=== PATIENT | male | born 1940 | race Caucasian/White ===

== ENCOUNTER 2016-09-08 08:19 | Outpatient (CLI) | payer MEDICARE, OTHER ==
[~2016-09-08] VITALS: Ht 177.8 cm; Wt 97.7 kg
--- NOTE | ~2016-09-08 | OP ---
PATIENT NAME: ALLYN MCKAY MEDICAL RECORD: [id number] :38 LOCATION:D.CAT ADMISSION DATE: SURGEON: IVAN MARTINEZ MD DATE OF OPERATION: 09/08/2016 PROCEDURES: 1. PTCA stent, left circumflex. 2. Left heart catheterization. 3. Selective coronary angiography. 4. Left ventriculogram. 5. Vein graft angiography. 6. ANN angiography. INDICATION: Angina and coronary artery disease. PROCEDURE IN DETAIL: After informed consent was obtained and after detailed explanation of risks, benefits as well as alternative therapies, the patient elected to proceed with angiogram and angioplasty. The right femoral area was prepped and draped in normal sterile fashion. The right femoral artery was cannulated via modified Seldinger technique with placement of 6-German sheath. All catheters exchanged through this sheath. FINDINGS: Left ventriculogram was performed in standard 30-degree CABAN view, reveals global hypokinesis throughout all segments. Overall ejection fraction 40%. SELECTIVE CORONARY ANGIOGRAPHY: 1. Left main showed no significant angiographic disease. 2. Left anterior descending has total occlusion in the proximal vessel. 3. ANN to the LAD is widely patent. 4. The left circumflex has a 99% stenosis in the mid vessel. This is a 12-mm lesion and a 2.75-mm vessel with GHADA-2 flow. 5. The vein graft to the circumflex is closed. 6. Right coronary artery is totally occluded. 7. Vein graft to the right coronary artery is widely patent. PTCA STENT OF THE LEFT CIRCUMFLEX: The stent used is a 2.75 x 14 mm BioFreedom. Result was 0% residual stenosis, GHADA-3 flow. IMPRESSION: Successful percutaneous transluminal coronary angioplasty stent of the left circumflex going from 99% initial stenosis to 0% residual. TRANSINT:[id number] Voice Confirmation ID: [id number] DOCUMENT ID: [id number] IVAN MARTINEZ MD CC: [id number] DICTATION DATE: 09/08/16 1344 FEDERAL APPELLATE LAW CLERK: 09/08/162131 DEP CLI 09/08/16 [facility] [address] [id number]
--- NOTE | ~2016-09-08 | HEMODYNAMI ---
PATIENT:ALLYN MCKAY MEDICAL RECORD: [id number] : 36 LOCATION:ANIKA ADMISSION DATE: 09/08/16 Generatedon:09/08/201613:44 Patient name: ALLYN MCKAY Patient #: [id number] SSN: : Date of study: 09/08/2016 Page: Of Hemodynamic Procedure Report Patient Data Patient Demographics Procedure consent was obtained First Name: ALLYN Gender: Male Last Name: NELY : 1940 Patient #: [id number] Age: 76 year(s) Race: Unknown Additional ID: [id number] Contact details Address: [address] State: [place] City: [facility] Zip code: [address] Past Medical History Allergies: No known allergies Admission Admission Data Admission Date: 09/08/2016 Admission Time: 8:19 Admit Source: Other Height (in.): 70 BSA: 2.15 (m2) Height (cm.): 177.8 BMI: 30.85 (kg/m2) Weight (lbs.): 215 Weight (kg.): 97.52 Procedure Procedure Types Cath Procedure Diagnostic Procedure LHC LHC w/Coronaries w/Grafts PCI Procedure Coronary Stent Initial Miscellaneous Procedures Moderate Sedation up to 30 minutes Procedure Description Procedure Date Procedure Date: 09/08/2016 Procedure Start Time: 13:24 Procedure End Time: 13:44 Procedure Staff Name Function Paul Meyer MD Performing Physician Darren Gabriel RT Scrub Ranjana Caruso RT Monitor Lilian Shell RN Nurse Procedure Data Cath Procedure Fluoroscopy Diagnostic fluoroscopy Total fluoroscopy Time: 5.6 time: 5.6 min min Diagnostic fluoroscopy Total fluoroscopy dose: 760 dose: 760 mGy mGy Contrast Material Contrast Material Type Amount (ml) Isovue 300 112 Entry Location Entry Primary Successful Side Size Upsize Upsize Entry Closure Succes sful Closure Location (Fr) 1 (Fr) 2 (Fr) Remarks Device Remarks Femoral Right 5 Fr 6 Fr Exoseal artery Short Estimated blood loss: 10 ml Diagnostic catheters Device Type Used For End Catheter Placement Cordis 5Fr Pigtail LV Angiography Catheter (MP) Cordis 5Fr JL 4.0 Left Coronary Catheter (MP) Angiography Cordis 5Fr 3DRC Catheter Internal mammary (MP) arteriography Cordis 5Fr 3DRC Catheter Right Coronary (MP) Angiography Diagnostic Infinity 5Fr SVG Angiography AR 2 MOD catheter Diagnostic Infinity 5Fr SVG Angiography AR 2 MOD catheter Cordis 5Fr 3DRC Catheter Internal mammary (MP) arteriography Procedure Complications No complications Procedure Medications Medication Administration Route Dosage Oxygen NC 2 l/min Heparin Flush Bag added to field 2 bags (1000units/500ml NS) Lidocaine 2% added to field 20 Fentanyl I.V. 50 mcg Versed I.V. 1 mg Fentanyl I.V. 25 mcg Versed I.V. 0.5 mg Heparin Bolus I.V. 4000 units Fentanyl I.V. 25 mcg Versed I.V. 0.5 mg Hemodynamics Rest BSA: 2.15 (m2) O2 Consumption: Estimated: 233.73 (ml/min) O2 Consumption indexed : Estimated:108.71 (ml/min/m) Heart Rate: 55 (bpm) Snapshots Pre Cath Intra NCS Post Cath Vital Signs Time Heart Resp SPO2 etCO2 [id number] NIBP (mmHg) Rhythm Pain Sedation Rate (ipm) (%) (mmHg) (mmHg) Status Level (bpm) 13:04:51 52 21 100 0 0 139/70(114) NSR 0 (11) 10(A) , No pain 13:09:11 56 17 100 0 0 130/68(105) NSR 0 (11) 10(A) , No pain 13:13:29 54 20 100 0 0 121/66(105) NSR 0 (11) 10(A) , No pain 13:17:43 53 17 99 0 0 124/68(93) NSR 0 (11) 9(A) , No pain 13:22:40 57 19 96 0 0 117/72(96) NSR 0 (11) 9(A) , No pain 13:26:52 58 16 96 0 0 121/69(83) NSR 0 (11) 9(A) , No pain 13:31:06 57 18 98 0 0 125/68(80) NSR 0 (11) 9(A) , No pain 13:35:22 56 17 99 0 0 119/66(98) NSR 0 (11) 9(A) , No pain 13:39:36 58 17 98 0 0 118/62(85) NSR 0 (11) 9(A) , No pain 13:43:46 63 13 96 0 0 133/72(89) NSR 0 (11) 9(A) , No pain Medications Time Medication Route Dose Verified Delivered Reason Notes Effectiveness by by 13:06:36 Oxygen NC 2 Lilian Lilian used for l/min Shell Shell boiler operators supervisor RN 13:06:44 Heparin Flush added 2 Lilian Lilian used for Bag to bags Shell Shell procedure (1000units/500ml field RN RN NS) 13:06:51 Lidocaine 2% added 20ml Lilian Lilian used for to vial Shell Shell procedure field RN RN 13:16:06 Fentanyl I.V. 50 Lilian Lilian for sedation mcg Sumaya Shell RN RN 13:16:11 Versed I.V. 1 mg Lilian Lilian for sedation Shell Shell RN RN 13:24:24 Fentanyl I.V. 25 Lilian Lilian for sedation mcg Shell Shell RN RN 13:24:28 Versed I.V. 0.5 Lilian Lilian for sedation mg Shellranjith Shell RN RN 13:34:29 Heparin Bolus I.V. 4000 Lilian Lilian for units Shell Shell anticoagulation RN RN 13:38:53 Fentanyl I.V. 25 Lilian Lilian for sedation mcg Shellranjith Shell RN RN 13:38:56 Versed I.V. 0.5 Lilian Lilian for sedation mg Shell Shell RN laundry pricing clerk Log Time Note 12:38:00 Patient Height : 70 cm 12:38:03 Patient Weight : 215 kg 12:42:25 Admit Source: Other 12:42:28 Diagnostic Cath status Elective 12:42:30 Time tracking: Regular hours 12:42:35 Plan of Care:Hemodynamics will remain stable., Cardiac rhythm will remain stable., Comfort level will be maintained., Respiratory function will remain adequate., Patient/ family verbilizes understanding of procedure., Procedure tolerated without complication., Recovers from procedure without complications.. 12:42:39 Signed procedure consent form obtained from patient. 12:42:49 H&P Date Dictated: 09/06/2016 Within 30 days and on chart., H&P Addendum completed by physician on day of procedure. (MUST COMPLETE FOR ALL OUTPATIENTS). 12:42:59 ACC The patient was administered the following blood thiners within the last 24 hours: ACCPlavix 12:43:04 Patient diabetic? Yes. 12:43:05 If diabetic: On Metformin? Yes 12:43:08 If on Metformin: Last Dose? 09/06/2016 12:51:21 Ranjana Counts RT(R) sent for patient. Start room use. 12:57:44 Patient received from Pre/Post Procedure Room to CCL 1 Alert and oriented. Tansferred to table in Supine position. 12:57:45 Warm blankets applied, and shaji hugger turned on for patient comfort. 12:57:45 Correct patient and procedure confirmed by team. 12:57:46 ECG and BP/O2 sat monitors applied to patient. 13:03:38 Vital chart was started 13:06:36 Oxygen 2 l/min NC was administered by Lilian Shell RN; used for procedure; 13:06:44 Heparin Flush Bag (1000units/500ml NS) 2 bags added to field was administered by Lilian Shell RN; used for procedure; 13:06:51 Lidocaine 2% 20ml vial added to field was administered by Lilian Shell RN; used for procedure; 13:07:48 Rhythm: sinus bradycardia 13:07:50 Full Disclosure recording started 13:07:51 Pre-procedure instructions explained to patient. 13:07:51 Pre-op teaching completed and patient verbalized understanding. 13:07:53 Family in patients room. 13:07:55 Patient NPO since Midnight. 13:08:01 Patient allergic to No known allergies 13:08:08 Is the patient allergic to Iodine/contrast media? No. 13:08:09 Is patient on blood thinner?Yes 13:08:11 ACC The patient was administered the following blood thiners within the last 24 hours: ACCPlavix 13:08:17 Previous problem with sedation/anesthesia? No ? 13:08:18 Snore? Yes 13:08:19 Sleep apnea? No 13:08:20 Deviated septum? No 13:08:20 Opens mouth fully? Yes 13:08:21 Sticks out tongue? Yes 13:08:23 Airway obstruction? No ? 13:08:24 Dentures? No ? 13:08:27 Pre procedure: right dorsailis pedis pulse 2+ Normal; easily identifiable; not easily obliterated 13:08:29 Patient pain scale 0/10 ?. 13:08:37 IV patent on arrival in right forearm with 0.9% NaCl at [facility]. 13:08:41 Lab results completed and on chart. 13:08:44 Right groin area was prepped with chlora-prep and draped in sterile fashion 13:08:47 Use device set Femoral Dx 13:08:48 Acist Syringe opened to sterile field. 13:08:49 Bag Decanter opened to sterile field. 13:08:49 Medline Cath Pack opened to sterile field. 13:08:49 Terumo 5Fr Wall Sheath opened to sterile field. 13:08:50 St Jimenez 260cm J .035 wire opened to sterile field. 13:08:51 Acist Hand Control opened to sterile field. 13:08:52 Acist Manifold opened to sterile field. 13:08:52 Diagnostic Infinity 5Fr Multipack catheter opened to sterile field. 13:08:53 Tegaderm 4 x 4 opened to sterile field. 13:10:06 Baseline sample Acquired. 13:14:44 Final Timeout: patient, procedure, and site verified with staff and physician. All members of the team are in agreement. 13:14:47 Right groin site verified by team. 13:14:50 Physical assessment completed. ASA score P 2 - A patient with mild systemic disease as per Paul Meyer MD. 13:14:52 Sedation plan: IV Moderate Sedation Versed, Fentanyl 13:16:06 Fentanyl 50 mcg I.V. was administered by Lilian Shell RN; for sedation; 13:16:11 Versed 1 mg I.V. was administered by Lilian Shell RN; for sedation; 13:17:57 Zero performed for pressure channel P1 13:24:07 Procedure started. 13:24:11 Local anesthetic to right femoral artery with Lidocaine 2% by Paul Meyer MD.INITIAL ACCESS ONLY 13:24:24 Fentanyl 25 mcg I.V. was administered by Lilian Shell RN; for sedation; 13:24:28 Versed 0.5 mg I.V. was administered by Lilian Shell RN; for sedation; 13:25:27 A 5 Fr sheath was inserted into the Right Femoral artery 13:25:33 A Cordis 5Fr Pigtail Catheter (MP) was advanced over the wire and used for LV Angiography. 13:25:42 LV gram done using CABAN 13:25:45 Injector settings: Ml/sec: 10, Volume: 20, 13:25:47 LV hemodynamics recorded. 13:25:50 EF : 40 % 13:25:52 Catheter removed. 13:26:16 A Cordis 5Fr JL 4.0 Catheter (MP) was advanced over the wire and used for Left Coronary Angiography. 13:26:50 Catheter removed. 13:27:07 DailyObjects.comixCompak Inflation Kit opened to sterile field. 13:27:07 Pineda Musicaneisper J 300cm 0.014 guide wire opened to sterile field. 13:27:08 Terumo 6Fr Wall Sheath opened to sterile field. 13:27:24 A Cordis 5Fr 3DRC Catheter (MP) was advanced over the wire and used for Internal mammary arteriography.to LAD 13:28:39 A Cordis 5Fr 3DRC Catheter (MP) was advanced over the wire and used for Right Coronary Angiography. 13:28:41 Catheter removed. 13:28:57 A Diagnostic Infinity 5Fr AR 2 MOD catheter was advanced over the wire and used for SVG Angiography.To Circ--Occluded 13:29:49 A Diagnostic Infinity 5Fr AR 2 MOD catheter was advanced over the wire and used for SVG Angiography.to RCA 13:29:53 Catheter removed. 13:31:16 A Cordis 5Fr 3DRC Catheter (MP) was advanced over the wire and used for Internal mammary arteriography.TASIA--Not Grafted 13:31:45 Cordis 6FR XBLAD 4.0 SH guide catheter opened to sterile field. 13:31:55 Sheath upsized to a 6 Fr Short. 13:34:12 6 Fr XBLAD 4.0 SH guide catheter was inserted over the wire 13:34:29 Heparin Bolus 4000 units I.V. was administered by Lilian Shell RN; for anticoagulation; 13:34:58 Whisper wire advanced. 13:36:18 Inflation number: 1 A [employer] [place] 2.0 X 15 balloon was prepped and advanced across the Prox CX, then inflated to 17 EMMETT for 0:11 (min:sec). 13:37:44 Balloon removed over the wire. 13:38:47 Inflation Number: 2 A Biofreedom 2.75 x 14 stent (No Cost Implant) was prepped and advanced across the Prox CX. The stent was deployed at 15 EMMETT for 0:06 (min:sec). 13:38:53 Fentanyl 25 mcg I.V. was administered by Lilian Shell RN; for sedation; 13:38:56 Versed 0.5 mg I.V. was administered by Lilian Shell RN; for sedation; 13:39:01 Stent catheter was removed intact over wire. 13:39:02 Wire removed. 13:39:03 Guide catheter removed. 13:39:20 Sheath removed intact; hemostasis achieved with Exoseal to the Right Femoral artery. 13:39:21 Procedure ended.(Physican Out) 13:39:43 Fluoroscopy time 05.60 minutes. 13:39:48 Fluoroscopy dose: 760 mGy 13:39:48 Flurop Dose total: 760 13:39:51 Contrast amount:Isovue 300 112ml. 13:39:52 Sharps counted by scrub and verified by R.N. 13:39:53 Insertion/operative site no bleeding no hematoma. 13:39:56 Post-op/insertion site Right Femoral artery dressed using a 4 x 4 and Tegaderm. 13:39:59 Post right femoral artery:stable, clean and dry 13:40:01 Post Procedure Pulses reassessed and unchanged 13:40:03 Post-procedure physical assessment completed. ASA score P 2 - A patient with mild systemic disease as per Paul Meyer MD. 13:40:05 Post procedure rhythm: unchanged. 13:40:08 Estimated blood loss: 10 ml 13:40:10 Post procedure instruction explained to patient.Patient verbalizes understanding. 13:40:10 Patient needs reinforcement of post procedure teaching. 13:40:33 Procedure type changed to Cath procedure, Diagnostic procedure, LHC, LHC w/Coronaries w/Grafts, PCI procedure, Coronary Stent Initial, Miscellaneous Procedures, Moderate Sedation up to 30 minutes 13:40:38 Procedure Complication : No complications 13:40:41 See physician's report for complete and final results. 13:40:58 Cordis 6Fr Exoseal opened to sterile field. 13:42:09 Procedure and supply charges have been captured, reviewed, submitted and are correct. 13:43:46 Report given to Pre/Post Procedure Room. 13:43:49 Patient transfered to Pre/Post Procedure Room with Stretcher. 13:44:08 Vital chart was stopped 13:44:10 Procedure ended. 13:44:10 Full Disclosure recording stopped 13:44:15 End room use (Document Last) Intervention Summary Intervention Notes Time ActionType Lesion and Equipment Action# Pressure Duration Attributes Used 13:36:18 Inflate Prox CX [place] Sci 1 17 00:11 balloon Chouteau 2.0 X 15 balloon 13:38:47 Place stent Prox CX Biofreedom 2 15 00:06 2.75 x 14 stent (No Cost Implant) Device Usage Item Name Manufacture Quantity Catalog Number Hospital Part Current Mini mal Lot# / Charge Number Stock Stock Serial# Code Acist Acist 1 [id number] [id number] 627080 877019 20 Syringe Medical Systems Inc Bag Microtek 1 2002S 813172 10641 695392 5 DecMeFeedia Medical Inc. Medline Cardinal 1 [id number] 575403 95608 063699 5 Cath Pack Health Terumo 5Fr Terumo 1 [id number] 311906 398305 080159 [address] St Jimenez 1 281094 235373 611625 003420 30 260cm J .035 wire Acist Hand Acist 1 76163 122493 939297 064225 5 Control Medical Systems Inc Acist Acist 1 49016 318528 375081 982936 5 Manifold Medical Systems Inc Diagnostic Cardinal 1 WQ8555 937915 05196 752562 30 Infinity Health 5Fr Multipack catheter Tegaderm 4 3M 1 1626W 572353 695889 072392 5 x 4 Cordis 5Fr Cardinal 1 011940 5 Pigtail Health Catheter (MP) Cordis 5Fr Cardinal 1 161407 5 JL 4.0 Health Catheter (MP) Merit Merit 1 [id number] 005460 737035 457776 15 BasixCompak Medical Inflation Kit Pineda Pineda 1 [id number] 227879 610130 390283 5 Whisper J Vascular 300cm 0.014 guide wire Terumo 6Fr Terumo 1 FAQ700 777634 586689 284436 40 Wall Sheath Cordis 5Fr Cardinal 1 4[address] [place] [address] Catheter (MP) Diagnostic Cardinal 1 [id number] 787906 084617 034771 20 [employer] Health 5Fr AR 2 MOD catheter Cordis 6FR Cardinal 1 [id number] 462187 8589 330653 3 XBLAD 4.0 Health SH guide catheter [employer] Sci Manchester 1 [id number] 241985 909905 963602 1 [id number] CGA Endowment 2.0 X 15 balloon Biofreedom Biosensors [address] [facility]2-6934 234167 506224 5 [id number] 2.75 x 14 Europe SA stent (No Cost Implant) Cordis 6Fr Cardinal 1 EX600 770584 757286 739801 10 [facility] Zappedy Signature Audit [place] Stage Time Signature Unsigned Intra-Procedure 09/08/2016 Ranjana 1:44:31 PM Counts RT(R) Signatures Monitor : Ranjana Signature : Counts RT Date : Time : [id number] [place] [address]
[~2016-09-08 08:19] MED LIST: BAYER CHEWABLE81 MG PO; COREG 3.1253.125 MG PO; FISH OIL 1,0001 CA1 PO; FLOMAX0.4 MG PO; GLIPIZIDE10 MG PO; GLUCOPHAGE500 MG PO; HYDROCODONE-APA1 TAB PO; INVOKANA300 MG PO; ISOSORBIDE DINI30 MG PO; LANTUS INSULIN10 ML SC; LIPITOR40 MG PO; LISINOPRIL2.5 MG PO; MULTIPLE VITAMI1 TA1 PO; NEURONTIN 300300 MG PO; NOVOLOG100 U/M1; PHENERGAN25 M1 PO; PROSCAR5 MG PO; TENORMIN25 MG PO; VITAMIN B-122500 MCG PO
[2016-09-08] MEDS ORDERED: JARDIANCE25 MG PO (08:48)
[2016-09-08] MEDS ORDERED: BETAPACE 120 M120 MG PO (08:49)
[2016-09-08] MEDS ORDERED: PLAVIX75 MG PO (08:49)
[2016-09-08 08:53] VITALS: BP 123/62; Ht 177.8 cm; Wt 97.7 kg
[2016-09-08 09:30] LABS: BASOPHILS 0.4 % (0-2); EOSINOPHILS 2.5 % (0-7); HEMATOCRIT 40.4 % (42.0-54.0); HEMOGLOBIN 13.6 g/dL (13.5-17.5); IMMATURE GRANULOCYTES 0.6 % (0-5); LYMPHOCYTES 16.2 % (15-50); MCH 31.1 pg (26.0-34.0); MCHC 33.7 g/dL (31.0-37.0); MCV 92.4 fL (80.0-100.0); MEAN PLATELET VOLUME 10.8 fL (7.4-10.4); MONOCYTES 11.6 % (2-11); NEUTROPHILS 68.7 % (40-80); RBC 4.37 10x6/uL (4.20-6.10); RDW 14.5 % (11.5-14.5); WBC 6.7 10x3/uL (4.8-10.8)
[2016-09-08 09:38] LABS: PLATELET COUNT 155 10x3/uL (130-400)
[2016-09-08 09:40] LABS: CALC OSMOLALITY 285 mosm/kg (275-300); CALCIUM 9.6 mg/dL (8.5-10.1); CHLORIDE - SERUM 102 mmol/L (98-107); CREATININE - SERUM 1.7 mg/dL (0.6-1.3); GLUCOSE 139 mg/dL (74-106); POTASSIUM - SERUM 4.2 mmol/L (3.5-5.1); SODIUM 139 mmol/L (136-145); UREA NITROGEN 29 mg/dL (7-18); eGFR NON AFRICAN AMERICAN 42 mL/min (90-120)
[2016-09-08 09:57] LABS: INR 1.02 (0.85-1.17); PROTIME 13.3 SECONDS (11.6-15.0)
[2016-09-08 12:01] LABS: CKMB 1.9 U/L (0.0-3.6); CREATINE KINASE 140 UL (21-232)
[2016-09-08 12:03] LABS: TROPONIN-I < 0.017 ng/mL (0.000-0.060)
--- NOTE | 2016-09-08 14:15 | NUR ---
RIGHT GROIN-CDI, NO HEMATOMA OR BLEEDING AT SITE
--- NOTE | 2016-09-08 14:45 | NUR ---
RIGHT GROIN CDI, NO HEMATOMA OR BLEEDING NOTED AT SITE, SOFT TO TOUCH
== END 2016-09-08 18:00 | disposition home or self-care (01) ==
LOC: D.CATH 08:19
PROVIDERS: Internal Medicine Interventional Cardiology
DX: I25.119 Atherosclerotic heart disease of native coronary artery with unspecified angina pectoris (principal); I25.719 Atherosclerosis of autologous vein coronary artery bypass graft(s) with unspecified angina pectoris; Z00.6 Encounter for examination for normal comparison and control in clinical research program; Z01.812 Encounter for preprocedural laboratory examination
CPT/HCPCS: 93459; C9600

== ENCOUNTER 2017-09-18 08:52 | Outpatient (CLI) | payer MEDICARE, OTHER ==
[~2017-09-18] VITALS: Ht 177.8 cm; Wt 100.0 kg
--- NOTE | ~2017-09-18 | OP ---
PATIENT NAME: ALLYN MCKAY MEDICAL RECORD: [id number] :38 LOCATION:D.CAT ADMISSION DATE: SURGEON: IVAN MARTINEZ MD DATE OF OPERATION: 09/18/2017 PROCEDURES: 1. PTCA and stent of RCA through patent vein graft. 2. Left heart catheterization. 3. Selective coronary angiography. 4. Vein graft angiography. 5. ANN angiography. 6. Left ventriculogram. INDICATION: Unstable angina, coronary disease. PROCEDURE IN DETAIL: After informed consent was obtained and after detailed description of risks and benefits as well as alternative therapies, the patient elected to proceed with angiogram and angioplasty. The right femoral area was prepped and draped in normal sterile fashion. Right femoral artery was cannulated via modified Seldinger technique with placement of 6-Faroese sheath. All catheters were exchanged through this sheath. FINDINGS: Left ventriculogram was performed in standard 30-degree CABAN view, reveals good cardiac wall motion throughout all segments. Overall ejection fraction mildly depressed at 40%. SELECTIVE CORONARY ANGIOGRAPHY: 1. Left main is with no significant angiographic disease. 2. Left anterior descending leads into a non-grafted diagonal. This is patent. Diagonal is patent. The LAD is totally occluded. 3. ANN to the distal LAD is widely patent. 4. Left circumflex has previously placed stents. These are widely patent with no significant restenosis. No disease else conley at the left circumflex or its branches. 5. Right coronary is totally occluded. 6. Vein graft to right coronary is patent; however, the distal right coronary has 95% stenosis after the vein graft. GERMAN TUTOR AND STENT OF THE RCA: The stent used was 2.5 x 18-mm Emre. Result was 0% residual stenosis. OVERALL IMPRESSION: Successful PTCA and stent of the RCA through the patent vein graft, going from 95% initial stenosis to 0% residual. TRANSINT:[id number] Voice Confirmation ID: [id number] DOCUMENT ID: [id number] IVAN MARTINEZ MD at 1741 CC: [id number] DICTATION DATE: 09/18/17 1248 CRYSTAL MOUNTER: 09/18/17 1320 DEP CLI 09/18/17 [place] [id number]
--- NOTE | ~2017-09-18 | HEMODYNAMI ---
PATIENT:ALLYN MCKAY MEDICAL RECORD: [id number] : 36 LOCATION:[facility] ADMISSION DATE: 09/18/17 Generatedon:09/18/201712:59 Patient name: ALLYN MCKAY Patient #: [id number] SSN: : Date of study: 09/18/2017 Page: Of Hemodynamic Procedure Report Patient Data Patient Demographics Procedure consent was obtained First Name: ALLYN Gender: Male Last Name: NELY : 1940 [facility] Initial: E Age: 77 year(s) Patient #: [id number] Race: Unknown Additional ID: [id number] Contact details Address: [address] State: [place] City: [facility] Zip code: [address] Past Medical History Allergies: No known allergies Admission Admission Data Admission Date: 09/18/2017 Admission Time: 8:52 Lab Results Lab Result Date: 09/18/2017 Lab Result Time: 0:00 Biochemistry Name Units Result Min Max Creatinine mg/dl 1.5 --(----)-* 0.6 1.3 Procedure Procedure Types Cath Procedure Diagnostic Procedure LHC LHC w/Coronaries w/Grafts PCI Procedure AMI/SVG/HELICOPTER CREW CHIEF PTCA or Stent SVG-BMS/ITZEL Initial Procedure Description Procedure Date Procedure Date: 09/18/2017 Procedure Start Time: 12:29 Procedure End Time: 12:59 Procedure Staff Name Function Paul Meyer MD Performing Physician Uriel Castro RT Monitor Niranjan Serna RN Nurse Tavares Lepe RT Scrub Procedure Data Cath Procedure Fluoroscopy Diagnostic fluoroscopy Total fluoroscopy Time: 5.3 time: 5.3 min min Diagnostic fluoroscopy Total fluoroscopy dose: dose: 493.33 mGy 493.33 mGy Contrast Material Contrast Material Type Amount (ml) Isovue 300 117 Entry Location Entry Primary Successful Side Size Upsize Upsize Entry Closure Succes sful Closure Location (Fr) 1 (Fr) 2 (Fr) Remarks Device Remarks Femoral Right 5 Fr 6 Fr Exoseal artery Short Estimated blood loss: 10 ml Diagnostic catheters Device Type Used For End Catheter Placement MULTIPACK Pigtail 5 Fr Procedure catheter MULTIPACK JL 4.0 5Fr Procedure catheter MULTIPACK 3DRC 5Fr Procedure catheter DIAGNOSTIC AR 1 MOD 5Fr Procedure catheter ([id number]) Procedure Medications Medication Administration Route Dosage Oxygen NC 2 l/min Lidocaine 2% added to field 20 Heparin Flush Bag added to field 2 bags (1000units/500ml NS) 0.9% NaCl I.V. 100 ml/hr Versed I.V. 1 mg Versed I.V. 1 mg Fentanyl I.V. 50 mcg Fentanyl I.V. 50 mcg Heparin Bolus I.V. 4000 units Integrilin (Bolus I.V. 9 ml 2mg/ml) Morphine I.V. 2 mg Morphine I.V. 2 mg Plavix P.O. 600 mg Hemodynamics Rest Heart Rate: 51 (bpm) Pressure Samples Time Site Value (mmHg) Purpose Heart Use Rate(bpm) 12:29 LV 121/0,6 Snapshot 51 Snapshots Pre Cath Intra NCS Post Cath Vital Signs Time Heart Resp SPO2 etCO2 NIBP (mmHg) Rhythm Pain Status Sedation Rate (ipm) (%) (mmHg) Level (bpm) 12:19:12 52 14 99 39.7 157/73(121) NSR 0 (11) , No 10(A) pain 12:24:24 51 16 99 41.9 140/69(114) NSR 0 (11) , No 10(A) pain 12:28:44 50 15 98 41.2 142/69(115) NSR 0 (11) , No 9(A) pain 12:33:45 55 16 98 45.7 139/69(108) NSR 0 (11) , No 9(A) pain 12:38:07 56 15 99 43.4 129/61(103) NSR 0 (11) , No 9(A) pain 12:42:25 54 13 99 38.9 140/68(115) NSR 8 (11) , 10(A) Utterly horrible 12:47:24 62 13 99 39 Measuring NSR 8 (11) , 10(A) Utterly horrible 12:47:41 58 14 99 37.5 172/83(113) NSR 5 (11) , 10(A) Very distressing 12:52:05 63 13 99 27.7 164/82(108) NSR 0 (11) , No 10(A) pain 12:56:29 62 11 99 38.2 164/83(128) NSR 0 (11) , No 10(A) pain Medications Time Medication Route Dose Verified Delivered Reason Notes Effectiveness by by 12:18:28 Oxygen NC 2 Paul Buffie used for l/min Betsy Serna RN procedure 12:18:35 Lidocaine 2% added 20ml Paul Paul for local to vial Betsy Meyer MD anesthetic field 12:18:41 Heparin Flush added 2 Paul Paul used for Bag to bags Betsy Meyre MD procedure (1000units/500ml field NS) 12:18:50 0.9% NaCl I.V. 100 Paul Buffie Per physician ml/hr Betsy Serna RN 12:26:10 Versed I.V. 1 mg Paul Matthewie for sedation Betsy Serna RN 12:26:17 Fentanyl I.V. 50 Paul Matthewie for sedation mcg Betsy Serna RN 12:30:10 Versed I.V. 1 mg Paul Matthewie for sedation Betsy Serna RN 12:30:50 Fentanyl I.V. 50 Paul Matthewie for sedation mcg Betsy Serna RN 12:35:06 Heparin Bolus I.V. 4000 Paul Vipulie for verifi ed units Betsy Serna RN anticoagulation with dr meyer 12:38:08 Integrilin I.V. 9 ml Paul Matthewie for Wasted 1 (Bolus 2mg/ml) Betsy Serna RN antiplatelet ml of therapy vial 12:46:37 Morphine I.V. 2 mg Paul Ureña for chest pain Betsy Serna RN 12:50:31 Morphine I.V. 2 mg Paul Buffie for chest pain Betsy Serna RN 12:55:12 Plavix P.O. 600 Paul Matthewie for mg Betsy Serna RN antiplatelet therapy Procedure Log Time Note 11:50:41 Tavares Lepe RT(R) sent for patient. Start room use. 11:50:43 Time tracking: Regular hours (M-F 7:00 - 5:00) 11:50:46 Plan of Care:Hemodynamics will remain stable., Cardiac rhythm will remain stable., Comfort level will be maintained., Respiratory function will remain adequate., Patient/ family verbilizes understanding of procedure., Procedure tolerated without complication., Recovers from procedure without complications.. 12:09:35 Patient received from Pre/Post Procedure Room to CCL 3 Alert and oriented. Tansferred to table in Supine position. 12:09:39 Warm blankets applied, and shaji hugger turned on for patient comfort. 12:09:40 Correct patient and procedure confirmed by team. 12::43 Signed procedure consent form obtained from patient. 12:18:00 ECG and BP/O2 sat monitors applied to patient. 12:18:00 Vital chart was started 12:18:28 Oxygen 2 l/min NC was administered by Niranjan Serna RN; used for procedure; 12:18:35 Lidocaine 2% 20ml vial added to field was administered by Paul Meyer MD; for local anesthetic; 12:18:41 Heparin Flush Bag (1000units/500ml NS) 2 bags added to field was administered by Paul Meyer MD; used for procedure; 12:18:50 0.9% NaCl 100 ml/hr I.V. was administered by Niranjan Serna RN; Per physician; 12:19:17 Baseline sample Acquired. 12:19:25 Rhythm: sinus bradycardia 12:19:27 Full Disclosure recording started 12:20:03 H&P Date Dictated: 09/17/2017 Within 30 days and on chart., H&P Addendum completed by physician on day of procedure. (MUST COMPLETE FOR ALL OUTPATIENTS). 12:20:07 Pre-procedure instructions explained to patient. 12:20:07 Pre-op teaching completed and patient verbalized understanding. 12:20:14 Family in patients room. 12:20:17 Patient NPO since Midnight. 12:20:24 Patient allergic to No known allergies 12:20:28 Is the patient allergic to Iodine/contrast media? No. 12:20:31 Is patient on blood thinner?No 12:20:34 Patient diabetic? Yes. 12:20:37 If diabetic: On Metformin? No 12:20:40 ----Pre-sedation anethsthesia assessment.---- 12:20:43 Previous problem with sedation/anesthesia? No ? 12:20:58 Snore? Yes 12:21:00 Sleep apnea? No 12:21:01 Deviated septum? No 12:21:03 Opens mouth fully? Yes 12:21:05 Sticks out tongue? Yes 12:21:08 Airway obstruction? No ? 12:21:11 Dentures? No ? 12:21:15 Pre procedure: right dorsailis pedis pulse 2+ Normal; easily identifiable; not easily obliterated 12:21:19 Patient pain scale 0/10 ?. 12:21:37 IV patent on arrival in right wrist with 0.9% NaCl at [facility]. 12:23:33 Lab Result : Creatinine 1.5 mg/dl 12:23:37 Lab results completed and on chart. 12:23:41 Right groin area was prepped with chlora-prep and draped in sterile fashion 12:23:42 Alarms reviewed by R. N. 12:23:42 Sharps counted by scrub and verified by R.N. 12:23:55 Use device set Femoral Dx 12:23:56 ACIST Syringe (39924) opened to sterile field. 12:23:57 Bag Decanter (2002S) opened to sterile field. 12:23:58 Medline Cath Pack ([id number]) opened to sterile field. 12:23:59 DIAGNOSTIC WIRE .035 260cm J wire (076726) opened to sterile field. 12:24:00 ACIST Hand Control (35300) opened to sterile field. 12:24:01 ACIST Manifold (96490) opened to sterile field. 12:24:02 DIAGNOSTIC Multipack 5Fr catheter set ([id number]) opened to sterile field. 12:24:03 Tegaderm 4 x 4 (1626W) opened to sterile field. 12:24:05 SHEATH Prelude 5Fr 0.035 (SSY-7J-92-035) opened to sterile field. 12:25:24 Physician arrived 12:25:25 --------ALL STOP TIME OUT------ 12::26 Final Timeout: patient, procedure, and site verified with staff and physician. All members of the team are in agreement. 12:25:28 Right groin site verified by team. 12:25:32 Physical assessment completed. ASA score P 2 - A patient with mild systemic disease as per Paul Meyer MD. 12:25:36 Sedation plan: IV Moderate Sedation Medication:Versed, Fentanyl 12:26:10 Versed 1 mg I.V. was administered by Niranjan Serna RN; for sedation; 12::17 Fentanyl 50 mcg I.V. was administered by Niranjan Serna RN; for sedation; 12:: Zero performed for pressure channel P1 :: Zero performed for pressure channel P1 12:: Zero performed for pressure channel P1 12::47 Procedure started. 12::51 Local anesthetic to right femoral artery with Lidocaine 2% by Paul Meyer MD.INITIAL ACCESS ONLY 12:30:05 A 5 Fr sheath was inserted into the Right Femoral artery 12::10 Versed 1 mg I.V. was administered by Niranjan Serna RN; for sedation; 12:50 Fentanyl 50 mcg I.V. was administered by Niranjan Serna RN; for sedation; ::06 A MULTIPACK Pigtail 5 Fr catheter was advanced over the wire and used for Procedure. 12:31:07 LV hemodynamics recorded. 12:31:09 LV gram done using CABAN 12:31:15 EF : 40 % 12::18 Catheter removed. 12::24 A MULTIPACK JL 4.0 5Fr catheter was advanced over the wire and used for Procedure. 12:31:42 LCA angiography performed. 12:31:45 Catheter removed. 12:31:50 A MULTIPACK 3DRC 5Fr catheter was advanced over the wire and used for Procedure. 12:32:09 ANN to LAD angiography performed. 12:32:39 RCA angiography performed. 12:32:49 SHEATH Prelude 6Fr 0.035 (RXX-3K-77-035) opened to sterile field. 12:33:03 CHOICE PT Extra Support 182cm wire ([id number]) opened to sterile field. 12:33:03 INFLATOR Merit BasixCompak (RF2208) opened to sterile field. 12:33:43 A DIAGNOSTIC AR 1 MOD 5Fr catheter ([id number]) was advanced over the wire and used for Procedure. 12:33:45 SVG to RCA angiography performed. 12:35:01 Catheter removed. 12:35:03 Proceeding to intervention. 12:35:06 Heparin Bolus 4000 units I.V. was administered by Niranjan Serna RN; for anticoagulation; verified with dr meyer 12:35:19 Sheath upsized to a 6 Fr Short. 12:35:37 GUIDE 6FR AR 2.0 SH catheter ([id number]) opened to sterile field. 12:35:59 6 Fr AR 2 SH guide catheter was inserted over the wire 12:36:49 Guide Catheter removed. unable to cannulate vessel. 12:37:28 GUIDE 6FR MB 1 SH catheter ([id number]) opened to sterile field. 12:37:53 6 Fr MB 1 SH guide catheter was inserted over the wire 12:38:08 Integrilin (Bolus 2mg/ml) 9 ml I.V. was administered by Niranjan Serna RN; for antiplatelet therapy; Wasted 1 ml of vial 12:38:45 CHOICE wire advanced. 12:38:52 Wire advanced across lesion. 12:40:16 Inflate balloon Inflation number: 1 A EUPHORA 2.5 x 12 Balloon ([id number]) was prepped and advanced across the Aorta Right -> Dist RCA, then inflated to 11 EMMETT for 0:10 (min:sec). 12:41:21 Balloon removed over the wire. 12:42:19 Place stent Inflation Number: 2 A ISAAK RX 2.5 x 18 stent ([id number]) was prepped and advanced across the Aorta Right -> Dist RCA. The stent was deployed at 17 EMMETT for 0:10 (min:sec). 12:43:45 Procedure type changed to Cath procedure, Diagnostic procedure, LHC, LHC w/Coronaries w/Grafts, PCI procedure, AMI/SVG/HELICOPTER CREW CHIEF PTCA or Stent, SVG-BMS/ITZEL Initial 12:46:37 Morphine 2 mg I.V. was administered by Niranjan Serna RN; for chest pain; 12:46:41 EXOSEAL 6Fr (EX600) opened to sterile field. 12:46:48 Stent catheter was removed intact over wire. 12:46:49 Wire removed. 12:46:50 Guide catheter removed. 12:46:58 Sheath removed intact; hemostasis achieved with Exoseal to the Right Femoral artery. 12:47:01 Procedure ended.(Physican Out) 12:49:30 Fluoroscopy time 05.30 minutes. 12:49:38 Fluoroscopy dose: 493.33 mGy 12:49:38 Flurop Dose total: 493.33 12:50:31 Morphine 2 mg I.V. was administered by Niranjan Serna RN; for chest pain; 12:52:02 Contrast amount:Isovue 300 117ml. 12:52:04 Sharps counted by scrub and verified by R.N. 12:52:43 Insertion/operative site no bleeding no hematoma. 12:52:57 Post-op/insertion site Right Femoral artery dressed using a 4 x 4 and Tegaderm. 12:53:28 Post right femoral artery:stable 12:55:12 Plavix 600 mg P.O. was administered by Niranjan Serna RN; for antiplatelet therapy; 12:55:19 Post Procedure Pulses reassessed and unchanged 12:56:00 Post-procedure physical assessment completed. ASA score P 2 - A patient with mild systemic disease as per Paul Meyer MD. 12:56:07 Post procedure rhythm: sinus rhythm 12:56:18 Estimated blood loss: 10 ml 12:56:21 Post procedure instruction explained to patient.Patient verbalizes understanding. 12:56:22 Patient needs reinforcement of post procedure teaching. 12:57:13 PATIENT STATES CHEST AND ARM PAIN. DR. MEYER KNOWS AND MORPHINE NOTED 12:58:08 Procedure and supply charges have been captured, reviewed, submitted and are correct. 12:59:07 Vital chart was stopped 12:59:08 See physician's report for complete and final results. 12:59:16 Report given to Pre/Post Procedure Room. 12:59:21 Patient transfered to Pre/Post Procedure Room with Stretcher. 12:59:24 Procedure ended. 12:59:24 Full Disclosure recording stopped 12:59:27 End room use (Document Last) Intervention Summary Intervention Notes Time ActionType Lesion and Equipment Used Action# Pressure Duration Attributes 12:40:16 Inflate Aorta Right EUPHORA 2.5 x 1 11 00:10 balloon -> Dist RCA 12 Balloon ([id number]) 12:42:19 Place stent Aorta Right ISAAK RX 2.5 x 2 17 00:10 -> Dist RCA 18 stent ([id number]) Device Usage Item Name Manufacture Quantity Catalog Number Hospital Part Current Minimal Lot# / Charge Number Stock Stock Serial# Code ACIST Syringe Acist 1 06787 601132 563724 [id number] 20 (33153) Medical Dek[employer] Bag Decanter Microtek 1 2001S 400402 88978 855246 5 () [employer]. Medline Cath Cardinal 1 [id number] 681227 61381 925338 5 [employer] ([id number]) DIAGNOSTIC WIRE [facility] Jimenez 1 867496 040549 861597 588801 30 .035 260cm J wire (416402) ACIST Hand Acist 1 96145 822857 702060 624553 5 Control (35395) Medical Systems Inc ACIST Manifold Acist 1 58796 241400 048673 711276 5 (94537) Medical Systems Inc DIAGNOSTIC Cardinal 1 UL2129 306711 28799 840399 30 Multipack 5Fr Health catheter set (SD7424) Tegaderm 4 x 4 3M 1 1626W 614804 714768 881455 5 (1626W) SHEATH Prelude Merit 1 WYL-6D-29-035 413723 699166 675625 5 5Fr 0.035 Medical (FLG-7T-89-035) MULTIPACK Cardinal 1 475929 5 Pigtail 5 Fr Health catheter MULTIPACK JL Cardinal 1 428211 5 4.0 5Fr Health catheter MULTIPACK 3DRC Cardinal 1 634501 5 5Fr catheter Health SHEATH Prelude Merit 1 YTJ-4V-57-35 093016 3023973 634777 5 6Fr 0.035 Medical (XNG-6X-68-035) CHOICE PT Extra [employer] 1 [id number] 085486 206655 838765 5 Support 182cm Scientific wire ([id number]) INFLATOR Merit Merit 1 FC5394 181219 610123 537215 15 BasixCompak Medical (ZV1404) DIAGNOSTIC AR 1 Cardinal 1 [id number] 927430 350027 474350 15 MOD 5Fr Health catheter (242677V) GUIDE 6FR AR Medtronic 1 [id number] 091870 46866 669029 1 2.0 SH catheter ([id number]) GUIDE 6FR MB 1 Medtronic 1 [id number] 688338 72386 653404 1 SH catheter (HQ9LZ2AN) EUPHORA 2.5 x Medtronic 1 [id number] 189774 739199 075326 5 [id number] 12 Balloon ([id number]) ISAAK RX 2.5 x Medtronic 1 [id number] 618361 7576025 394252 5 [id number] 18 stent ([id number]) EXOSEAL 6Fr Cardinal 1 EX600 395702 319590 469060 10 (EX600) Health Signature Audit Meldrim Stage Time Signature Unsigned Intra-Procedure 09/18/2017 Uriel Castro 12:59:55 PM RT(R) (CV) Signatures Monitor : Uriel Castro RT Signature : Date : Time : [address] [place] [address]
[~2017-09-18 08:52] MED LIST changes: +BETAPACE 120 M120 MG PO; +JARDIANCE25 MG PO; +PLAVIX75 MG PO
[2017-09-18] MEDS ORDERED: TENORMIN25 MG PO (09:20)
[2017-09-18 09:24] VITALS: BP 112/61; Ht 177.8 cm; Wt 100.0 kg
[2017-09-18 09:36] LABS: BASOPHILS 0.2 % (0-2); EOSINOPHILS 3.2 % (0-7); HEMATOCRIT 41.2 % (42.0-54.0); HEMOGLOBIN 13.9 g/dL (13.5-17.5); IMMATURE GRANULOCYTES 0.2 % (0-5); LYMPHOCYTES 24.1 % (15-50); MCH 30.8 pg (26.0-34.0); MCHC 33.7 g/dL (31.0-37.0); MCV 91.4 fL (80.0-100.0); MEAN PLATELET VOLUME 10.3 fL (7.4-10.4); MONOCYTES 11.1 % (2-11); NEUTROPHILS 61.2 % (40-80); PLATELET COUNT 127 10x3/uL (130-400); RBC 4.51 10x6/uL (4.20-6.10); RDW 14.8 % (11.5-14.5); WBC 5.7 10x3/uL (4.8-10.8)
[2017-09-18 09:44] LABS: CALCIUM 9.5 mg/dL (8.5-10.1); CARBON DIOXIDE 25.5 mmol/L (21.0-32.0); CREATININE - SERUM 1.5 mg/dL (0.6-1.3); POTASSIUM - SERUM 4.5 mmol/L (3.5-5.1)
[2017-09-18] MEDS ORDERED: PLAVIX75 MG PO (14:53)
== END 2017-09-18 16:45 | disposition home or self-care (01) ==
LOC: D.CATH 08:52
PROVIDERS: Internal Medicine Interventional Cardiology
DX: I25.110 Atherosclerotic heart disease of native coronary artery with unstable angina pectoris (principal); I10 Essential (primary) hypertension
CPT/HCPCS: 93459; C9604

== ENCOUNTER 2018-06-17 07:35 | Outpatient (CLI) | payer MEDICARE, OTHER ==
[~2018-06-17] VITALS: Ht 177.8 cm; Wt 99.1 kg
--- NOTE | ~2018-06-17 | OP ---
PATIENT NAME: ALLYN MCKAY MEDICAL RECORD: [id number] :36 LOCATION:D.CAT ADMISSION DATE: SURGEON: IVAN MARTINEZ MD DATE OF OPERATION: 06/17/2018 DATE OF SERVICE: 06/17/2018 PROCEDURES: 1. PTCA stent RCA through patent vein graft. 2. Left heart catheterization. 3. Selective coronary angiography. 4. Vein graft angiography. 5. ANN angiography. INDICATION: Unstable angina and coronary artery disease. DESCRIPTION OF PROCEDURE: After informed consent was obtained and after a detailed description of risks, benefits as well as alternative therapies, the patient elected to proceed with angiogram and angioplasty. The left femoral area was prepped and draped in normal sterile fashion. Left femoral artery was cannulated via modified Seldinger technique with placement of 6-Divehi sheath. All catheters exchanged through this sheath. FINDINGS: Left ventriculogram was performed in standard 30-degree CABAN view, reveals global hypokinesis throughout all segments. Overall ejection fraction 40%. SELECTIVE CORONARY ANGIOGRAPHY: 1. Left main is with no significant angiographic disease. 2. Left anterior descending has a large diagonal system with 90% stenosis. The LAD is then totally occluded. 3. The ANN to the distal LAD is widely patent. Distal LAD is diffusely diseased, but patent. 4. Circumflex has a closed graft. Circumflex has 95% stenosis in the mid vessel. 5. The right coronary is closed. 6. Vein graft to the right coronary is patent. There is 99% stenosis after the patent graft. PTCA STENT OF THE RCA: Through the graft, the stent used was a 3.0 x 15-mm Emre. Result was 0% residual stenosis. OVERALL IMPRESSION: Successful percutaneous transluminal coronary angioplasty stent of the right coronary artery through the patent vein graft going from 99% initial stenosis to 0% residual. PLAN: Percutaneous transluminal coronary angioplasty stent of the left anterior descending diagonal and circumflex in the near future. TRANSINT:[id number] Voice Confirmation ID: [id number] DOCUMENT ID: [id number] OPERATIVE REPORT [id number] ALLYN MCKAY IVAN MARTINEZ MD CC: [id number] DICTATION DATE: 06/17/18 0936 HYDROPONICS WORKER: 06/17/18 1021 [facility] [address] [place] [address]
--- NOTE | ~2018-06-17 | HEMODYNAMI ---
PATIENT:ALLYN MCKAY MEDICAL RECORD: [id number] : 36 LOCATION:[facility] ADMISSION DATE: 06/17/18 Generatedon:06/17/20189:35 Patient name: ALLYN MCKAY Patient #: [id number] SSN: : Date of study: 06/17/2018 Page: Of Hemodynamic Procedure Report Patient Data Patient Demographics Procedure consent was obtained First Name: ALLYN Gender: Male Last Name: NELY : 1940 Middle Initial: E Age: 77 year(s) Patient #: [id number] Race: Unknown Additional ID: [id number] Contact details Address: [address] State: [place] City: [facility] Zip code: [address] Past Medical History Allergies: No known allergies Admission Admission Data Admission Date: 06/17/2018 Admission Time: 7:35 Height (in.): 70 BSA: 2.17 (m2) Height (cm.): 177.8 BMI: 31.32 (kg/m2) Weight (lbs.): 218.26 Weight (kg.): 99 Lab Results Lab Result Date: 06/17/2018 Lab Result Time: 0:00 Biochemistry Name Units Result Min Max BUN mg/dl 21 --(----)-* 7 18 Creatinine mg/dl 1.5 --(----)-* 0.6 1.3 CBC Name Units Result Min Max Hemoglobin g/dl 13.5 --(*---)-- 13.5 17.5 Procedure Procedure Types Cath Procedure Diagnostic Procedure LHC LHC w/Coronaries w/Grafts PCI Procedure Coronary Stent Coronary Stent Initial Peripheral Cath Diagnostic Procedure Drug Safety Associate Peripheral Procedures Gkzsm-Amtweod-Wfr-Off Procedure Description Procedure Date Procedure Date: 06/17/2018 Procedure Start Time: 9:09 Procedure End Time: 9:32 Procedure Staff Name Function Paul Meyer MD Performing Physician Kim Ayoub RT Monitor Mehdi Maharaj RN Nurse Darren Gabriel RT Scrub Sukumar Lantigua RT Toolroom Attendant Procedure Data Cath Procedure Fluoroscopy Diagnostic fluoroscopy Total fluoroscopy Time: 5.6 time: 5.6 min min Diagnostic fluoroscopy Total fluoroscopy dose: dose: 1763 mGy 1763 mGy Contrast Material Contrast Material Type Amount (ml) Isovue 300 185 Entry Location Entry Primary Successful Side Size Upsize Upsize Entry Closure Succes sful Closure Location (Fr) 1 (Fr) 2 (Fr) Remarks Device Remarks Femoral Left 5 Fr 6 Fr Exoseal artery Short Estimated blood loss: 10 ml Diagnostic catheters Device Type Used For End Catheter Placement MULTIPACK Pigtail 5 Fr Procedure catheter MULTIPACK JL 4.0 5Fr Procedure catheter MULTIPACK 3DRC 5Fr Procedure catheter DIAGNOSTIC AR MOD 5Fr Procedure Catheter ([id number]) Procedure Complications No complications Procedure Medications Medication Administration Route Dosage 0.9% NaCl I.V. 100 ml/hr Oxygen etCO2 Nasal cannula 2 l/min Heparin Flush Bag added to field 2 bags (1000units/500ml NS) Lidocaine 2% added to field 20 Versed I.V. 1 mg Fentanyl I.V. 50 mcg Versed I.V. 1 mg Fentanyl I.V. 50 mcg Heparin Bolus I.V. 5000 units Integrilin (Bolus I.V. 9 ml 2mg/ml) Integrilin (Bolus wasted 1 ml 2mg/ml) Plavix P.O. 600 mg Hemodynamics Rest BSA: 2.17 (m2) HGB: 13.5 (g/dl) O2 Consumption: Estimated: 235.07 (ml/min) O2 Co nsumption indexed: Estimated:108.33 (ml/min/m) Heart Rate: 54 (bpm) Pressure Samples Time Site Value (mmHg) Purpose Heart Use Rate(bpm) 9:11 AO 120/56(80) Pullback 63 Gradients Valve Time Site Site 2 Mean SEP/DFP Peak To Heart Use 1 (mmHg) (sec/min) Peak Rate (mmHg) (bpm) Aortic 9:11 LV AO 20 58 63 120/56(80) Calculations Valve P-P Mean Valve Index Valve Source Name Gradient Area Flow (cm2) Aortic 20 20 Snapshots Pre Cath Intra NCS Post Cath Vital Signs Time Heart Resp SPO2 etCO2 NIBP (mmHg) Rhythm Pain Sedation Rate (ipm) (%) (mmHg) Status Level (bpm) 8:55:01 56 12 100 0 133/71(99) NSR 0 (11) 10(A) , No pain 8:59:12 56 14 99 32.6 123/64(100) NSR 0 (11) 10(A) , No pain 9:03:20 55 12 98 25.8 120/68(83) NSR 0 (11) 10(A) , No pain 9:07:28 54 20 98 36.4 117/64(77) NSR 0 (11) 10(A) , No pain 9:11:34 56 12 99 36.3 123/66(98) NSR 0 (11) 10(A) , No pain 9:15:46 54 13 98 37.2 118/58(84) NSR 0 (11) 9(A) , No pain 9:19:54 56 13 98 35.6 113/62(87) NSR 0 (11) 9(A) , No pain 9:23:59 61 19 98 37.9 107/60(87) NSR 0 (11) 9(A) , No pain 9:28:01 62 13 99 30.3 126/70(97) NSR 0 (11) 10(A) , No pain 9:32:09 62 15 99 28.8 127/71(96) NSR 0 (11) 10(A) , No pain Medications Time Medication Route Dose Verified Delivered Reason Notes Effectiveness by by 8:53:11 0.9% NaCl I.V. 100 Mehdi Mehdi Per physician ml/hr Nicko Maharaj RN RN 8:53:20 Oxygen etCO2 2 Mehdi Mehdi for low 02 sats Nasal l/min Nicko Maharaj cannula RN RN 8:53:30 Heparin Flush added 2 Mehdi Mehdi used for Bag to bags Nicko Maharaj procedure (1000units/500ml field [place] RN NS) 8:53:40 Lidocaine 2% added 20ml Mehdi Mehdi for local to vial Nicko Maharja anesthetic field NAN [place] 8:59:43 Versed I.V. 1 mg Mehdi Mehdi for sedation Nicko Maharaj RN RN 8:59:51 Fentanyl I.V. 50 Mehdi Mehdi for sedation mcg Nicko Maharaj RN, RN 9:10:26 Versed I.V. 1 mg Mehdi Mehdi for sedation Nicko Maharaj RN RN 9:10:31 Fentanyl I.V. 50 Mehdi Mehdi for sedation mcg Nicko Maharaj RN RN 9:19:46 Heparin Bolus I.V. 5000 Mehdi Mehdi for units Nicko Maharaj anticoagulation RN RN 9:20:00 Integrilin I.V. 9 ml Mehdi Mehdi for (Bolus 2mg/ml) Nicko Maharaj antiplatelet RN RN therapy 9:20:09 Integrilin wasted 1ml Mehdi Mehdi to sharp's (Bolus 2mg/ml) Nicko Maharaj RN RN 9:28:21 Plavix P.O. 600 Mehdi Mehdi for mg Nicko Maharaj antiplatelet RN RN therapy Procedure Log Time Note 8:20:54 Sukumar Langmanuel RT(R) sent for patient. Start room use. 8:32:06 Time tracking: Regular hours (M-F 7:00 - 5:00) 8:32:11 Plan of Care:Hemodynamics will remain stable., Cardiac rhythm will remain stable., Comfort level will be maintained., Respiratory function will remain adequate., Patient/ family verbilizes understanding of procedure., Procedure tolerated without complication., Recovers from procedure without complications.. 8:38:05 Patient received from Pre/Post Procedure Room to CCL 2 Alert and oriented. Tansferred to table in Supine position. 8:38:07 Warm blankets applied, and shaji hugger turned on for patient comfort. 8:38:08 Correct patient and procedure confirmed by team. 8:38:10 Signed procedure consent form obtained from patient. 8:38:26 Pre procedure: right dorsailis pedis pulse 2+ Normal; easily identifiable; not easily obliterated 8:38:30 Pre procedure: left dorsailis pedis pulse 2+ Normal; easily identifiable; not easily obliterated 8:39:43 H&P Date Dictated: 06/06/2018 Within 30 days and on chart., H&P Addendum completed by physician on day of procedure. (MUST COMPLETE FOR ALL OUTPATIENTS). 8:39:44 Pre-procedure instructions explained to patient. 8:39:51 Family in waiting room. 8:39:54 Patient NPO since Midnight. 8:40:04 Patient allergic to No known allergies 8:40:07 Is the patient allergic to Iodine/contrast media? No. 8:40:08 Was the patient premedicated? Yes 8:40:25 IV patent on arrival in left forearm with 0.9% NaCl at [facility]. 8:52:51 Lab Result : BUN 21 mg/dl 8::51 Lab Result : Creatinine 1.5 mg/dl 8::51 Lab Result : Hemoglobin 13.5 g/dl 8:52:55 Lab results completed and on chart. 8:53:00 Bilateral groins area was prepped with chlora-prep and draped in sterile fashion 8:53:01 Alarms reviewed by R. N. 8:53:02 Sharps counted by scrub and verified by R.N. 8:53:03 Physician paged 8:53:11 0.9% NaCl 100 ml/hr I.V. was administered by Mehdi Maharaj RN; Per physician; 8:53:20 Oxygen 2 l/min etCO2 Nasal cannula was administered by Mehdi Maharaj RN; for low 02 sats; 8:53:30 Heparin Flush Bag (1000units/500ml NS) 2 bags added to field was administered by Mehdi Maharaj RN; used for procedure; 8:53:35 Patient Height : 70 inches 8:53:39 Patient Weight : 218.26 lbs 8:53:40 Lidocaine 2% 20ml vial added to field was administered by Mehdi Maharaj RN; for local anesthetic; 8:53:50 Vital chart was started 8:58:37 Baseline sample Acquired. 8:58:41 Rhythm: sinus rhythm 8:58:43 Full Disclosure recording started 8:58:49 Is patient on blood thinner?No 8:58:53 Patient diabetic? No. 8:58:59 Snore? Unknown 8:59:01 Sleep apnea? Unknown 8:59:04 Airway obstruction? Unknown ? 8:59:06 Physician arrived 8:59:08 --------ALL STOP TIME OUT------ 8:59:09 Final Timeout: patient, procedure, and site verified with staff and physician. All members of the team are in agreement. 8:59:12 Bilateral groins site verified by team. 8:59:16 Maximum allowable Isovue 300 dose 300ml. Physician notified. (300ml for normal creatinines. For patients with creatinine of 1.7 or higher multiply weight(kg) x 5 divided by creatinine.) 8:59:21 Fire Safety Assessment: A--An alcohol-based skin anteseptic being used preoperatively., C--Open oxygen or nitrous oxide is being used., D--An ESU, laser, or fiber-optic light is being used. 8:59:26 Physical assessment completed. ASA score P 2 - A patient with mild systemic disease as per Paul Meyer MD. 8:59:30 Sedation plan: IV Moderate Sedation Medication:Versed, Fentanyl 8:59:34 Zero performed for pressure channel P1 8:59:43 Versed 1 mg I.V. was administered by Mehdi Maharaj RN; for sedation; 8:59:51 Fentanyl 50 mcg I.V. was administered by Mehdi Maharaj RN; for sedation; 9:00:47 Use device set Femoral Dx 9:00:49 ACIST Syringe (41803) opened to sterile field. 9:00:50 Bag Decanter (2002S) opened to sterile field. 9:00:51 Medline Cath Pack ([id number]) opened to sterile field. 9:00:52 DIAGNOSTIC WIRE .035 260cm J wire (047807) opened to sterile field. 9:00:54 ACIST Hand Control (01931) opened to sterile field. 9:00:55 ACIST Manifold (77791) opened to sterile field. 9:00:56 DIAGNOSTIC Multipack 5Fr catheter set (WG2111) opened to sterile field. 9:00:58 SHEATH 5FR [place] (UKY483) opened to sterile field. 9:07:21 Procedure started. 9:09:39 Local anesthetic to left femerol artery with Lidocaine 2% by Paul Meyer MD.INITIAL ACCESS ONLY 9:09:49 A 5 Fr sheath was inserted into the Left Femoral artery 9:10:26 Versed 1 mg I.V. was administered by Mehdi Maharaj RN; for sedation; 9:10:31 Fentanyl 50 mcg I.V. was administered by Mehdi Maharaj RN; for sedation; 9:10:48 A MULTIPACK Pigtail 5 Fr catheter was advanced over the wire and used for Procedure. 9:10:51 LV angiography performed. 9:11:16 EF : 40 % 9:11:20 LV angiography performed. 9:11:23 Catheter removed. 9:11:54 Right leg runoff performed. 9:11:56 Left leg runoff performed. 9:12:15 Catheter removed. 9:13:06 A MULTIPACK JL 4.0 5Fr catheter was advanced over the wire and used for Procedure. 9:13:15 LCA angiography performed. 9:13:57 Catheter removed. 9:14:21 A MULTIPACK 3DRC 5Fr catheter was advanced over the wire and used for Procedure. 9:14:53 ANN to LAD angiography performed. 9:15:41 RCA angiography performed. 9:15:49 Catheter removed. 9:16:00 A DIAGNOSTIC AR MOD 5Fr Catheter ([id number]) was advanced over the wire and used for Procedure. 9:16:37 SVG to Circ occluded. 9:17:21 SVG to RCA angiography performed. 9:17:30 Catheter removed. 9:17:49 SHEATH 6FR [place] (BAK531) opened to sterile field. 9:18:09 INFLATOR Merit BasixCompak (VG1200) opened to sterile field. 9:18:10 CHOICE PT Extra Support 182cm wire ([id number]) opened to sterile field. 9:18:22 Sheath upsized to a 6 Fr Short. 9:18:43 GUIDE 6FR MB 1 SH catheter ([id number]) opened to sterile field. 9:18:49 Proceeding to intervention. 9:19:05 6 Fr MB1 SH guide catheter was inserted over the wire 9:19:46 Heparin Bolus 5000 units I.V. was administered by Mehdi Maharaj RN; for anticoagulation; 9:20:00 Integrilin (Bolus 2mg/ml) 9 ml I.V. was administered by Mehdi Maharaj RN; for antiplatelet therapy; 9:20:09 Integrilin (Bolus 2mg/ml) 1ml wasted was administered by Mehdi Maharaj RN; to sharp's; 9:20:30 choice pt ex wire advanced. 9:20:40 Wire advanced across lesion. 9:23:38 Place stent Inflation Number: 1 A ISAAK RX 3.0 x 15 stent ([id number]) was prepped and advanced across the Aorta Right -> Dist RCA. The stent was deployed at 17 EMMETT for 0:30 (min:sec). 9:23:49 Inflation number: 1 The stent balloon was then re-inflated across the Undefined2 to 13 EMMETT for 0:07 (min:sec). 9:24:16 Stent catheter was removed intact over wire. 9:25:46 Inflate balloon Inflation number: 1 A EUPHORA 2.5 x 15 Balloon ([id number]) was prepped and advanced across the Undefined1, then inflated to 17 EMMETT for 0:04 (min:sec). 9:25:56 Inflation number: 2 The EUPHORA 2.5 x 15 Balloon ([id number]) was reinflated across the Undefined1, to 19 EMMETT for 0:05 (min:sec). 9:27:18 Inflation number: 1 The EUPHORA 2.5 x 15 Balloon ([id number]) was reinflated across the Aorta Right -> Dist RCA, to 0 EMMETT for 0:00 (min:sec). 9:28:21 Plavix 600 mg P.O. was administered by Mehdi Maharaj RN; for antiplatelet therapy; 9:28:24 EXOSEAL 6Fr (EX600) opened to sterile field. 9:28:41 Wire removed. 9:28:43 Guide catheter removed. 9:28:59 Sheath removed intact; hemostasis achieved with Exoseal to the Left Femoral artery. 9:29:02 Procedure ended.(Physican Out) 9:29:13 Fluoroscopy time 05.60 minutes. 9:29:19 Flurop Dose total: 1763 9:29:19 Fluoroscopy dose: 1763 mGy 9:29:48 Contrast amount:Isovue 300 185ml. 9:29:50 Sharps counted by scrub and verified by R.N. 9:29:51 Insertion/operative site no bleeding no hematoma. 9:29:57 Post left femerol artery:stable 9:29:59 Post Procedure Pulses reassessed and unchanged 9:30:03 Post-procedure physical assessment completed. ASA score P 2 - A patient with mild systemic disease as per Paul Meyer MD. 9:30:08 Post procedure rhythm: unchanged. 9:30:11 Estimated blood loss: 10 ml 9:30:12 Post procedure instruction explained to patient.Patient verbalizes understanding. 9:30:56 Procedure type changed to Cath procedure, Diagnostic procedure, LHC, LHC w/Coronaries w/Grafts, PCI procedure, Coronary Stent, Coronary Stent Initial, Peripheral Cath Diagnostic Procedure, Drug Safety Associate Peripheral Procedures, Jfrjb-Gvzosxe-Wjy-Off 9:31:01 Procedure and supply charges have been captured, reviewed, submitted and are correct. 9:31:48 Procedure Complication : No complications 9:31:51 Vital chart was stopped 9:31:56 See physician's report for complete and final results. 9:31:58 Report given to Pre/Post Procedure Room. 9:32:02 Patient transfered to Pre/Post Procedure Room with Stretcher. 9:32:04 Procedure ended. 9:32:04 Full Disclosure recording stopped 9:32:14 End room use (Document Last) 9:32:20 ACC-PCI Only Patient was given prescriptions, or instructed by Paul Meyer MD to start/continue the following medications upon discharge: Plavix Intervention Summary Intervention Notes Time ActionType Lesion and Equipment Used Action# Pressure Duration Attributes 9:23:38 Place stent Aorta Right ISAAK RX 3.0 x 1 17 00:30 -> Dist RCA 15 stent ([id number]) 9:23:49 Reinflate Undefined2 ISAAK RX 3.0 x 1 13 00:07 stent 15 stent balloon ([id number]) 9:25:46 Inflate Undefined1 EUPHORA 2.5 x 1 17 00:04 balloon 15 Balloon ([id number]) 9:25:56 Reinflate Undefined1 EUPHORA 2.5 x 2 19 00:05 balloon 15 Balloon ([id number]) 9:27:18 Reinflate Aorta Right EUPHORA 2.5 x 1 0 00:00 balloon -> Dist RCA 15 Balloon ([id number]) Device Usage Item Name Manufacture Quantity Catalog Number Hospital Part Current M inimal Lot# / Charge Number Stock Stock Serial# Code ACIST Syringe Acist 1 52305 566328 601709 013111 2 0 (79386) Medical Systems Inc Bag Decanter Microtek 1 022156 86410 969826 5 () Medical Inc. Medline Cath Medline 1 [id number] 780337 01588 095134 5 Pack ([id number]) DIAGNOSTIC St Jimenez 1 061389 303573 755027 046939 3 0 WIRE .035 260cm J wire (258654) ACIST Hand Acist 1 01563 022521 347769 391858 5 Control Medical (16288) Systems Inc ACIST Manifold Acist 1 18890 499940 107400 643933 5 (94883) Medical Systems Inc DIAGNOSTIC Cardinal 1 TN8757 083341 83065 832668 3 0 Multipack 5Fr Health catheter set (HW6296) SHEATH 5FR Terumo 1 UFD679 835352 374888 144034 5 [place] (OMS067) MULTIPACK Cardinal 1 727002 5 Pigtail 5 Fr Health catheter MULTIPACK JL Cardinal 1 361833 5 4.0 5Fr Health catheter MULTIPACK 3DRC Cardinal 1 672192 5 5Fr catheter Health DIAGNOSTIC AR Cardinal 1 [id number] 449661 173000 617095 1 5 MOD 5Fr Health Catheter (117702R) SHEATH 6FR Terumo 1 EFD946 905880 260830 105112 4 0 [place] (BVI411) INFLATOR Merit Merit 1 KD3415 692388 685585 798276 1 5 [employer] [facility] (MS1393) CHOICE PT [place] 1 [id number] 954803 892702 165256 5 Extra Support Scientific 182cm wire ([id number]) GUIDE 6FR MB 1 Medtronic 1 [id number] 125121 20338 229474 1 SH catheter ([id number]) ISAAK RX 3.0 x Medtronic 1 [id number] 371383 5751307 096176 5 [id number] 15 stent ([id number]) EUPHORA 2.5 x Medtronic 1 [id number] 873194 972535 748861 5 [id number] 15 Balloon ([id number]) EXOSEAL 6Fr Cardinal 1 EX600 806368 325449 005548 1 0 (EX600) Health Signature Audit [place] Stage Time Signature Unsigned Intra-Procedure 06/17/2018 Kim Ayoub 9:35:27 AM RT(R) Signatures Monitor : Kim Ayoub Signature : RT Date : Time : [facility] [address] [place] [address]
--- NOTE | ~2018-06-17 | OP ---
PATIENT NAME: ALLYN MCKAY MEDICAL RECORD: [id number] :36 LOCATION:D.CAT ADMISSION DATE: SURGEON: IVAN MARTINEZ MD DATE OF OPERATION: 06/17/2018 DATE OF SERVICE: 06/17/2018 PROCEDURES: 1. Aortofemoral runoff. 2. Abdominal aortography. INDICATION: Claudication and peripheral vascular disease. DESCRIPTION OF PROCEDURE IN DETAIL: After informed consent was obtained and after a detailed description of risks, benefits as well as alternative therapies, the patient elected to proceed with angiogram and aortofemoral runoff. The left femoral area had a preexisting sheath from cardiac intervention. All catheters exchanged through this sheath. FINDINGS: The abdominal aortography was performed. The catheter was pulled down for aortofemoral runoff. Abdominal aortography reveals no significant abdominal aortic disease, no dissection or aneurysm formation. RIGHT LEG: A. Iliac: The common internal and external iliacs have moderate irregularities, but no flow-limiting stenosis. B. Femoral system: The common and deep femoral are widely patent. Superficial femoral does have an area of greater than 80% stenosis in the mid vessel. C. Popliteal and infrapopliteal vessels are patent. There is 3-vessell runoff to the foot, although moderately severely diffusely diseased. LEFT LEG: A. Iliac: The common internal and external iliacs have moderate irregularities, but no flow-limiting stenosis. B. Femoral system: The common and deep femoral are widely patent. Superficial femoral has tjvm-kc-khaxzuum irregularities, but no flow-limiting stenosis. C. Popliteal and infrapopliteal vessels are patent, although diffusely diseased, giving 3-vessel runoff to the foot. OVERALL IMPRESSION: Superficial femoral artery disease of right, that is amenable to transcatheter revascularization. TRANSINT:[id number] Voice Confirmation ID: [id number] DOCUMENT ID: [id number] IVAN MARTINEZ MD CC: [id number] DICTATION DATE: 06/17/18 0936 DIRECTOR OF OPTIMIZATION: 06/17/18 1022 [facility] [address] [place] [address]
[~2018-06-17 07:35] MED LIST changes: -NOVOLOG100 U/M1; +NOVOLOG100 UNIT/1 SC
[2018-06-17] MEDS ORDERED: TOPROL XL25 MG PO (07:56)
[2018-06-17 08:07] VITALS: BP 141/52; Ht 177.8 cm; Wt 99.1 kg
[2018-06-17 08:20] LABS: BASOPHILS 0.3 % (0-2); EOSINOPHILS 2.2 % (0-7); HEMATOCRIT 40.3 % (42.0-54.0); HEMOGLOBIN 13.5 g/dL (13.5-17.5); IMMATURE GRANULOCYTES 0.3 % (0-5); LYMPHOCYTES 22.3 % (15-50); MCHC 33.5 g/dL (31.0-37.0); MCV 92.6 fL (80.0-100.0); MEAN PLATELET VOLUME 10.3 fL (7.4-10.4); MONOCYTES 9.8 % (2-11); NEUTROPHILS 65.1 % (40-80); PLATELET COUNT 145 10x3/uL (130-400); RBC 4.35 10x6/uL (4.20-6.10); RDW 14.6 % (11.5-14.5); WBC 6.2 10x3/uL (4.8-10.8)
[2018-06-17 08:21] LABS: ANION GAP 13.9 mmol/L (8-16); CARBON DIOXIDE 26.4 mmol/L (21.0-32.0); CREATININE - SERUM 1.5 mg/dL (0.6-1.3); POTASSIUM - SERUM 4.3 mmol/L (3.5-5.1)
[2018-06-17] MEDS ORDERED: PLAVIX75 MG PO (09:43)
--- NOTE | 2018-06-17 10:00 | NUR ---
ROOM AIR WITH NO RESP DISTRESS. LEFT GROIN 6F EXOSEAL CDI, NO BLEEDING OR HEMATOMA NOTED. NO C/O PAIN OR NAUSEA. VSS. FAMILY AT BEDSIDE, CALL LIGHT WITHIN REACH.
--- NOTE | 2018-06-17 10:30 | NUR ---
LEFT GROIN 6F EXOSEAL CDI, NO BLEEDING OR HEMATOMA NOTED. ROOM AIR WITH NO RESP DISTRESS. DENIES ANY NEEDS AT THIS TIME. VSS. WILL CONTINUE TO MONITOR.
--- NOTE | 2018-06-17 10:45 | NUR ---
RESTING QUIETLY WITH EYES CLOSED. LEFT GROIN 6F EXOSEAL CDI, NO BLEEDING OR HEMATOMA NOTED. DENIES ANY NEEDS AT THIS TIME. VSS. CALL LIGHT WITHIN REACH.
--- NOTE | 2018-06-17 11:15 | NUR ---
CONTINUES TO REST COMFORTABLY WITH NO C/O. LEFT GROIN 6F EXOSEAL CDI, NO BLEEDING OR HEMATOMA NOTED. NO NEEDS VOICED. VSS. WILL CONTINUE TO MONITOR.
--- NOTE | 2018-06-17 11:45 | NUR ---
LEFT GROIN 6F EXOSEAL KAROL, NO BLEEDING OR HEMATOMA NOTED. ROOM AIR WITH NO RESP DISTRESS. NO NEEDS OR C/O VOICED. VSS. CALL LIGHT WITHIN REACH.
--- NOTE | 2018-06-17 12:35 | NUR ---
HOB ELEVATED 30 DEGREES. LEFT GROIN 6F EXOSEAL CDI, NO BLEEDING OR HEMATOMA NOTED. SIPPING ON DRINK AND EATING SANDWICH WITH NO C/O NAUSEA. VSS. WILL CONTINUE TO MONITOR.
--- NOTE | 2018-06-17 13:00 | NUR ---
DISCHARGE INSTRUCTIONS GIVEN TO PT AND FAMILY, VERBALIZED UNDERSTANDING. [facility] [place] PER PT REQUEST. LEFT PIV D/C'D WITH CATHETER INTACT, BAND AID TO SITE. UP TO BEDSIDE TO GET DRESSED. AMBULATED TO RESTROOM.
--- NOTE | 2018-06-17 13:25 | NUR ---
TAKEN OUT VIA WHEELCHAIR BY CATH SLASHER OPERATOR. LEFT FACILITY WITH FAMILY AND ALL PERSONAL BELONGINGS.
== END 2018-06-17 13:25 | disposition home or self-care (01) ==
LOC: D.CATH 07:35
PROVIDERS: ATTEND Internal Medicine Interventional Cardiology
DX: I25.110 Atherosclerotic heart disease of native coronary artery with unstable angina pectoris (principal); I70.211 Atherosclerosis of native arteries of extremities with intermittent claudication, right leg; Z01.812 Encounter for preprocedural laboratory examination
CPT/HCPCS: 93459; C9604

== ENCOUNTER 2018-06-19 07:27 | Outpatient (CLI) | payer MEDICARE, OTHER ==
[~2018-06-19] VITALS: Ht 177.8 cm; Wt 98.2 kg
--- NOTE | ~2018-06-19 | HP ---
PATIENT: ALLYN MCKAY MEDICAL RECORD: [id number] ACCOUNT: [id number] LOCATION:ANIKA : 36 ADMISSION DATE: 06/19/18 PCP: REINA, HISTORY AND PHYSICAL EXAMINATION DIAGNOSES: 1. Angina. 2. Coronary artery disease. 3. Recent percutaneous transluminal coronary angioplasty stent of the right coronary artery with concomitant disease of the left circumflex and left anterior descending diagonal. 4. Claudication. 5. Peripheral vascular disease, significant stenosis of right superficial femoral artery. HISTORY OF PRESENT ILLNESS: Mr. Mckay presented with anginal symptomatology as well as claudication symptomatology, found to have 3-vessel coronary artery disease as well as SFA disease on the right. He underwent successful PTCA stent of the RCA. He is now brought back for PTCA stent of the LAD and circumflex as well as SFA, right. PHYSICAL EXAMINATION: GENERAL APPEARANCE: Well-nourished, well-developed, appears stated age. Level of distress, comfortable. PSYCHIATRIC: Mental status, alert, normal affect. Orientation, oriented to time, place and person. EYES: Lids and conjunctiva, noninjected. No discharge, no pallor. ENT: Lips, teeth, gums, normal dentition. Oropharynx, no cyanosis, no pallor. NECK: Carotid arteries, bilateral normal upstroke, no bruits, no thrills. JUGULAR VEINS: No jugular venous pressure or distention. CERVICAL LYMPH NODES: Nontender, nonenlarged. THYROID: Not enlarged. Nontender. No nodules. LUNGS: Respiratory effort, unlabored. CHEST: Normal curvature. No thoracic deformity. No chest wall tenderness. Percussion, resonant. Auscultation, clear. No wheezes, no rales, no rhonchi. CARDIOVASCULAR: Precordial exam, nondisplaced. No heaves or pericardial thrills. Rate and rhythm, regular. Heart sounds, normal S1, normal S2. No S3, no gallop, no rub. Systolic murmur, not heard. Diastolic murmur, not heard. EXTREMITIES: No cyanosis, no edema. Peripheral pulses, full and equal in all extremities, except as noted. No bruits appreciated. ABDOMEN: Soft, nondistended. Normal aorta. No bruit. Nontender. No masses. Liver, nontender, no hepatomegaly. Spleen, nontender, no splenomegaly. MUSCULOSKELETAL: No joint tenderness. No joint swelling. No erythema. NEUROLOGICAL: Normal gait, normal strength, normal tone. SKIN: Warm and dry. OVERALL IMPRESSION: Anginal symptomatology with coronary artery disease, claudication symptomatology with peripheral vascular disease. We will proceed with transcatheter revascularization. TRANSINT:[id number] Voice Confirmation ID: [id number] DOCUMENT ID: [id number] HISTORY AND PHYSICAL [id number] ALLYN MCKAY JEFFREY MD CC: [id number] DICTATION DATE: 06/19/18851 CHEMISTRY SPECIALIST: 06/19/1847 [facility] [address] [place] [id number]
--- NOTE | ~2018-06-19 | HEMODYNAMI ---
PATIENT:ALLYN MCKAY MEDICAL RECORD: [id number] : 36 LOCATION:[facility] ADMISSION DATE: 06/19/18 Generatedon:06/19/20189:24 Patient name: ALLYN MCKAY Patient #: [id number] SSN: : Date of study: 06/19/2018 Page: Of Hemodynamic Procedure Report Patient Data Patient Demographics Procedure consent was obtained First Name: ALLYN Gender: Male Last Name: NELY : 1940 Middle Initial: E Age: 77 year(s) Patient #: [id number] Race: Unknown Additional ID: [id number] Contact details Address: [address] State: [place] City: [facility] Zip code: [address] Past Medical History Allergies: No known allergies Admission Admission Data Admission Date: 06/19/2018 Admission Time: 7:27 Admit Source: Other Lab Results Lab Result Date: 06/17/2018 Lab Result Time: 0:00 Biochemistry Name Units Result Min Max BUN mg/dl 21 --(----)-* 7 18 Creatinine mg/dl 1.5 --(----)-* 0.6 1.3 CBC Name Units Result Min Max Hemoglobin g/dl 13.5 --(*---)-- 13.5 17.5 Procedure Procedure Types Cath Procedure Diagnostic Procedure Sedation Charges Moderate Sedation up to 15 minutes PCI Procedure Coronary Stent Coronary Stent Initial PTCA PTCA Initial Procedure Description Procedure Date Procedure Date: 06/19/2018 Procedure Start Time: 9:01 Procedure End Time: 9:19 Procedure Staff Name Function Verito Arana RT Monitor Paul Meyer MD Performing Physician Sukumar Lantigua RT Scrub Desiree Briseno RN Nurse Procedure Data Cath Procedure Fluoroscopy Diagnostic fluoroscopy Total fluoroscopy Time: 5.9 time: 5.9 min min Diagnostic fluoroscopy Total fluoroscopy dose: 469 dose: 469 mGy mGy Contrast Material Contrast Material Type Amount (ml) Isovue 300 108 Entry Location Entry Primary Successful Side Size Upsize Upsize Entry Closure Succes sful Closure Location (Fr) 1 (Fr) 2 (Fr) Remarks Device Remarks Femoral Left 6 Fr 6 Fr 6 Fr Exoseal artery Short Long Short Estimated blood loss: 5 ml Diagnostic catheters Device Type Used For End Catheter Placement DIAGNOSTIC IMT 5Fr Multi-vessel Catheter ([id number]) Angiography Procedure Complications No complications Procedure Medications Medication Administration Route Dosage 0.9% NaCl I.V. 100 ml/hr Oxygen etCO2 Nasal cannula 2 l/min Lidocaine 2% added to field 20 Heparin Flush Bag added to field 2 bags (1000units/500ml NS) Versed I.V. 2 mg Fentanyl 50 mcg Versed I.V. 2 mg Fentanyl 50 mcg Heparin Bolus I.V. 4000 units Versed I.V. 1 mg Fentanyl 50 mcg Hemodynamics Rest HGB: 13.5 (g/dl) Heart Rate: 90 (bpm) Snapshots Pre Cath Intra NCS Post Cath Vital Signs Time Heart Resp SPO2 etCO2 NIBP (mmHg) Rhythm Pain Sedation Rate (ipm) (%) (mmHg) Status Level (bpm) 8:47:10 76 13 97 37.7 167/88(133) NSR 0 (11) 10(A) , No pain 8:51:34 78 11 100 29.4 166/83(120) NSR 0 (11) 10(A) , No pain 8:55:53 80 15 98 27.2 152/83(117) NSR 0 (11) 10(A) , No pain 9:00:17 81 15 98 30 147/79(101) NSR 0 (11) 10(A) , No pain 9:04:37 79 13 98 30 142/76(112) NSR 0 (11) 9(A) , No pain 9:08:55 84 12 99 32.2 158/85(119) NSR 0 (11) 9(A) , No pain 9:13:15 86 15 100 30.6 168/95(134) NSR 6 (11) 9(A) , Intense 9:17:39 85 17 99 33.6 169/88(126) NSR 0 (11) 10(A) , No pain Medications Time Medication Route Dose Verified Delivered Reason Notes Effectiveness by by 8:54:01 Versed I.V. 2 mg Paul Ramírez for sedation Betsy Briseno RN 8:54:11 Fentanyl 50 Paul Desiree mcg Betsy Briseno RN 8:54:19 0.9% NaCl I.V. 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 2 mg Paul Desiree for sedation Betsy Briseno RN 9:00:39 Fentanyl 50 Paul Desiree mcg Betsy Briseno RN 9:04:51 Heparin Bolus I.V. 4000 Paul Desiree for verifi ed units Betsy Briseno anticoagulation with Dr. NAN Meyer 9:13:33 Versed I.V. 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 Start room use. 8:39:16 Time tracking: Regular hours (M-F 7:00 - 5:00) 8:39:20 Plan of Care:Hemodynamics will remain stable., Cardiac rhythm will remain stable., Comfort level will be maintained., Respiratory function will remain adequate., Patient/ family verbilizes understanding of procedure., Procedure tolerated without complication., Recovers from procedure without complications.. 8:45:53 Patient received from Pre/Post Procedure Room to CCL 1 Alert and oriented. Tansferred to table in Supine position. 8:45:55 Correct patient and procedure confirmed by team. 8:45:55 Warm blankets applied, and shaji hugger turned on for patient comfort. 8:45:57 Signed procedure consent form obtained from patient. 8:45:58 Vital chart was started 8:45:58 ECG and BP/O2 sat monitors applied to patient. 8:45:59 Baseline sample Acquired. 8:46:02 Rhythm: sinus rhythm 8:46:05 Full Disclosure recording started 8:49:14 Baseline sample Acquired. 8:49:20 H&P Date Dictated: 06/19/2018 Within 30 days and on chart., H&P Addendum completed by physician on day of procedure. (MUST COMPLETE FOR ALL OUTPATIENTS). 8:49:22 Pre-op teaching completed and patient verbalized understanding. 8:49:22 Pre-procedure instructions explained to patient. 8:49:23 Family in waiting room. 8:49:25 Patient NPO since Midnight. 8:49:27 Is the patient allergic to Iodine/contrast media? No. 8:49:29 Was the patient premedicated? No 8:49:31 Is patient on blood thinner?Yes 8:49:33 ACC The patient was administered the following blood thiners within the last 24 hours: ACCPlavix 8:49:35 Patient diabetic? Yes. 8:49:36 If diabetic: On Metformin? No 8:49:39 Previous problem with sedation/anesthesia? No ? 8:49:41 Snore? No 8:49:43 Deviated septum? No 8:49:43 Sleep apnea? No 8:49:44 Opens mouth fully? Yes 8:49:45 Sticks out tongue? Yes 8:49:50 Airway obstruction? No ? 8:49:55 Dentures? Yes in tight 8:50:45 Pre procedure: right dorsailis pedis pulse 1+ Palpable, but thready & weak; easily obliterated 8:50:49 Pre procedure: left dorsailis pedis pulse 1+ Palpable, but thready & weak; easily obliterated 8:50:52 Patient pain scale 0/10 ?. 8:50:58 IV patent on arrival in right forearm with 0.9% NaCl at KVO. 8:51:01 Lab results completed and on chart. 8:51:07 Bilateral groins area was prepped with chlora-prep and draped in sterile fashion 8:51:08 Sharps counted by scrub and verified by R.N. 8:51:08 Alarms reviewed by R. N. 8:51:10 --------ALL STOP TIME OUT------ 8:51:10 Physician arrived 8:51:11 Final Timeout: patient, procedure, and site verified with staff and physician. All members of the team are in agreement. 8:51:13 Bilateral groins site verified by team. 8:51:18 Maximum allowable Isovue 300 dose 300ml. Physician notified. (300ml for normal creatinines. For patients with creatinine of 1.7 or higher multiply weight(kg) x 5 divided by creatinine.) 8:51:22 Fire Safety Assessment: A--An alcohol-based skin anteseptic being used preoperatively., C--Open oxygen or nitrous oxide is being used., D--An ESU, laser, or fiber-optic light is being used. 8:51:25 Physical assessment completed. ASA score P 2 - A patient with mild systemic disease as per Paul Meyer MD. 8:51:29 Sedation plan: IV Moderate Sedation Medication:Versed, Fentanyl 8:51:49 Use device set CATH PACK 8:51:50 ACIST Syringe (71321) opened to sterile field. 8:51:51 Medline Cath Pack ([id number]) opened to sterile field. 8:51:51 ACIST Manifold (62642) opened to sterile field. 8:51:51 ACIST Hand Control (68631) opened to sterile field. 8:51:52 DIAGNOSTIC WIRE .035 260cm J wire (025576) opened to sterile field. 8:51:52 Bag Decanter (2002S) opened to sterile field. 8:51:59 SHEATH 6FR [place] (ZID935) opened to sterile field. 8:52:49 CHOICE PT Extra Support 182cm wire ([id number]) opened to sterile field. 8:52:50 INFLATOR Merit BasixCompak (NO1880) opened to sterile field. 8:54:01 Versed 2 mg I.V. was administered by Desiree Briseno RN; for sedation; 8:54:11 Fentanyl 50 mcg was administered by Desiree Briseno RN; ; 8:54:19 0.9% NaCl 100 ml/hr I.V. was administered by Desiree Briseno RN; used for procedure; 8:54:27 Oxygen 2 l/min etCO2 Nasal cannula was administered by Desiree Briseno RN; used for procedure; 8:54:33 Lidocaine 2% 20ml vial added to field was administered by Paul Meyer MD; for local anesthetic; 8:54:38 Heparin Flush Bag (1000units/500ml NS) 2 bags added to field was administered by Paul Meyer MD; used for procedure; 8:58:22 Zero performed for pressure channel P1 8:58:28 Zero performed for pressure channel P1 8:58:35 Zero performed for pressure channel P1 8:58:48 Zero performed for pressure channel P1 8:59:24 Zero performed for pressure channel P1 8:59:34 Zero performed for pressure channel P1 8:59:42 Zero performed for pressure channel P1 9:00:29 Versed 2 mg I.V. was administered by Desiree Briseno RN; for sedation; 9:00:39 Zero performed for pressure channel P1 9:00:39 Fentanyl 50 mcg was administered by Desiree Briseno RN; ; 9:00:48 Zero performed for pressure channel P1 9:00:58 Zero performed for pressure channel P1 9:01:07 Zero performed for pressure channel P1 9:01:16 Procedure started. 9:01:21 Local anesthetic to left femerol artery with Lidocaine 2% by Paul Meyer MD.INITIAL ACCESS ONLY 9:01:30 A 6 Fr Short sheath was inserted into the Left Femoral artery 9:01:36 Zero performed for pressure channel P1 9:02:00 Zero performed for pressure channel P1 9:02:38 Zero performed for pressure channel P1 9:02:46 Zero performed for pressure channel P1 9:03:09 6 Fr xblad 3.5 guide catheter was inserted over the wire 9:03:43 LCA angiography performed. 9:04:29 choice pt wire advanced. 9:04:51 Heparin Bolus 4000 units I.V. was administered by Desiree Briseno RN; for anticoagulation; verified with Dr. Meyer 9:06:09 Inflate balloon Inflation number: 1 A EUPHORA 2.0 x 15 Balloon ([id number]) was prepped and advanced across the Dist CX, then inflated to 11 EMMETT for 0:15 (min:sec). 9:06:53 Inflation number: 2 The EUPHORA 2.0 x 15 Balloon ([id number]) was reinflated across the Dist CX, to 15 EMMETT for 0:15 (min:sec). 9::43 Inflation number: 1 The EUPHORA 2.0 x 15 Balloon ([id number]) was reinflated across the Prox CX, to 17 EMMETT for 0:10 (min:sec). 9:07:57 Balloon removed over the wire. 9:09:36 The ISAAK RX 2.0 x 12 stent ([id number]) was advanced then removed because of failure to cross lesion 9:09:46 Wire redirected to lad . 9:10:36 Place stent Inflation Number: 1 A ISAAK RX 2.0 x 12 stent ([id number]) was prepped and advanced across the Mid LAD. The stent was deployed at 15 EMMETT for 0:10 (min:sec). 9:11:09 Stent catheter was removed intact over wire. 9:11:11 Wire removed. 9:11:14 Guide catheter removed. 9:11:41 SHEATH 6FR Destination (RSR01) opened to sterile field. 9:12:07 Sheath upsized to a 6 Fr Long. 9:12:52 GLIDE WIRE Super Stiff Angled 260cm ([id number]) opened to sterile field. 9:13:20 A DIAGNOSTIC IMT 5Fr Catheter ([id number]) was advanced over the wire and used for Multi-vessel Angiography. 9:13:33 Versed 1 mg I.V. was administered by Desiree Briseno RN; for sedation; 9:13:37 Fentanyl 50 mcg was administered by Desiree Briseno RN; ; 9:13:38 TORQUE DEVICE PLASTIC .038 ( TD01) opened to sterile field. 9:16:12 Right leg runoff performed. 9:16:17 Catheter removed. 9:16:24 Sheath upsized to a 6 Fr Short. 9:16:32 EXOSEAL 6Fr (EX600) opened to sterile field. 9:16:41 Sheath removed intact; hemostasis achieved with Exoseal to the Left Femoral artery. 9:16:43 Procedure ended.(Physican Out) 9:16:57 Fluoroscopy time 05.90 minutes. 9:17:02 Fluoroscopy dose: 469 mGy 9:17:02 Flurop Dose total: 469 9:17:06 Contrast amount:Isovue 300 108ml. 9:17:09 Sharps counted by scrub and verified by R.N. 9:17:11 Insertion/operative site no bleeding no hematoma. 9:17:17 Post-op/insertion site Left Femoral artery dressed using a 4 x 4 and Tegaderm. 9:17:37 Post procedure rhythm: unchanged. 9:17:40 Estimated blood loss: 5 ml 9:17:42 Post procedure instruction explained to patient.Patient verbalizes understanding. 9:17:43 Patient needs reinforcement of post procedure teaching. 9:19:28 Procedure type changed to Cath procedure, Diagnostic procedure, Sedation Charges, Moderate Sedation up to 15 minutes, PCI procedure, Coronary Stent, Coronary Stent Initial, PTCA, PTCA Initial 9:19:29 Procedure and supply charges have been captured, reviewed, submitted and are correct. 9:19:34 Procedure Complication : No complications 9:19:37 See physician's report for complete and final results. 9:19:37 Vital chart was stopped 9:19:45 Report given to Pre/Post Procedure Room. 9:19:48 Patient transfered to Pre/Post Procedure Room with Stretcher. 9:19:51 Full Disclosure recording stopped 9:19:51 Procedure ended. 9:19:56 ACC-PCI Only Patient was given prescriptions, or instructed by Paul Meyer MD to start/continue the following medications upon discharge: Plavix 9:19:58 End room use (Document Last) Intervention Summary Intervention Notes Time ActionType Lesion and Equipment Used Action# Pressure Duration Attributes 9:06:09 Inflate Dist CX EUPHORA 2.0 x 1 11 00:15 balloon 15 Balloon ([id number]) 9:06:53 Reinflate Dist CX EUPHORA 2.0 x 2 15 00:15 balloon 15 Balloon ([id number]) 9:07:43 Reinflate Prox CX EUPHORA 2.0 x 1 17 00:10 balloon 15 Balloon ([id number]) 9:09:36 Discard ISAAK RX 2.0 x Stent 12 stent ([id number]) 9:10:36 Place stent Mid LAD ISAAK RX 2.0 x 1 15 00:10 12 stent ([id number]) Device Usage Item Name Manufacture Quantity Catalog Number Hospital Part Current M inimal Lot# / Charge Number Stock Stock Serial# Code ACIST Syringe Acist 1 92527 856811 876539 175037 2 0 (36361) [employer] ACIST Hand Acist 1 82537 181211 455845 499603 5 Control Medical (48895) Senseware Inc ACIST Manifold Acist 1 52143 466516 203834 248033 5 (70650) Medical Systems Inc Medline Cath Medline 1 [id number] 664245 56615 277562 5 Pack ([id number]) Bag Decanter Microtek 1 2001S 746477 24588 602127 5 (2001S) Medical Inc. DIAGNOSTIC [facility] [place] 1 774744 447440 584172 500125 3 0 WIRE .035 260cm J wire (541015) SHEATH 6FR Terumo 1 QIS763 810245 266340 078629 4 0 [place] (LUD105) CHOICE PT [place] 1 [id number] 874244 888686 019834 5 Extra Support Scientific 182cm wire ([id number]) INFLATOR Merit Merit 1 CN6315 189005 977796 672700 1 5 Intercom (XY3456) EUPHORA 2.0 x Medtronic 1 [id number] 763849 082285 784659 5 [id number] 15 Balloon (PFB2700P) ISAAK RX 2.0 x Medtronic 1 [id number] 262830 8261118 604869 5 [id number] 12 stent ([id number]) SHEATH 6FR Terumo 1 RSR01 584501 34901 969214 5 Destination (RSR01) GLIDE WIRE Terumo 1 TR4077 898620 779986 959754 5 Super Stiff Angled 260cm (ZP1989) DIAGNOSTIC IMT [place] 1 [id number] 852525 996780 10998 5 5Fr Catheter Scientific ([id number]) TORQUE DEVICE [place] 1 TD01 350100 137348 369771 5 PLASTIC .038 ( Scientific TD01) EXOSEAL 6Fr Cardinal 1 EX600 548056 847311 666074 1 0 (EX600) Health Signature Audit [place] Stage Time Signature Unsigned Intra-Procedure 06/19/2018 Verito Arana RT(R) 9:21:14 AM RT(R) 06/19/2018 9:23:09 AM Intra-Procedure 06/19/2018 Verito Arana 9:24:03 AM RT(R) Signatures Monitor : Verito Arana RT Signature : Date : Time : [address] [place] [address]
--- NOTE | ~2018-06-19 | OP ---
PATIENT NAME: ALLYN MCKAY MEDICAL RECORD: [id number] :36 LOCATION:D.CAT ADMISSION DATE: SURGEON: IVAN MARTINEZ MD DATE OF OPERATION: 06/19/2018 PROCEDURES: 1. PTCA and stent of LAD diagonal. 2. PTCA of left circumflex. 3. Selective coronary angiography. INDICATIONS: Angina and coronary artery disease. PROCEDURE IN DETAIL: After informed consent was obtained and a detailed explanation of risks, benefits as well as alternative therapies, the patient elected to proceed with angiogram and angioplasty. The left femoral area was prepped and draped in normal sterile fashion. Left femoral artery was cannulated via modified Seldinger technique with placement of 6-Maori sheath. All catheters exchanged through this sheath. FINDINGS: The left circumflex had 95% stenosis distally. This was addressed with a 2.0 balloon. The circumflex was so heavily calcified, no stent would pass. We had excellent balloon result with no significant dissection and 0% residual stenosis. We turned our attention to the LAD diagonal that had 95% stenosis. This was addressed with a 2.0 x 12-mm Emre stent. Result was 0% residual stenosis. Initially, the plan was for YARD BRAKEMAN stent of the SFA as well; however, with around the horn visualization of the SFA, it is moderately calcified, but there is no flow-limiting stenosis. OVERALL IMPRESSION: Successful PTCA and stent of the LAD diagonal and PTCA of the left circumflex, both going from 90% to 95% initial stenosis to 0% residual. TRANSINT:[id number] Voice Confirmation ID: [id number] DOCUMENT ID: [id number] IVAN MARTINEZ MD CC: [id number] DICTATION DATE: 06/19/18920 LOCKSTITCH COLLAR SETTER: 06/19/[address] [facility] [address] [place] [address]
[~2018-06-19 07:27] MED LIST changes: +TOPROL XL25 MG PO
[2018-06-19 08:04] VITALS: BP 151/78; Ht 177.8 cm; Wt 98.2 kg
[2018-06-19 08:39] LABS: ANION GAP 13.3 mmol/L (8-16); CALCIUM 9.2 mg/dL (8.5-10.1); CARBON DIOXIDE 27.2 mmol/L (21.0-32.0); CREATININE - SERUM 1.5 mg/dL (0.6-1.3); POTASSIUM - SERUM 4.5 mmol/L (3.5-5.1)
[2018-06-19 08:55] LABS: BASOPHILS 0.3 % (0-2); EOSINOPHILS 2.5 % (0-7); HEMATOCRIT 40.9 % (42.0-54.0); HEMOGLOBIN 13.8 g/dL (13.5-17.5); IMMATURE GRANULOCYTES 0.5 % (0-5); LYMPHOCYTES 20.5 % (15-50); MCH 31.4 pg (26.0-34.0); MCHC 33.7 g/dL (31.0-37.0); MEAN PLATELET VOLUME 10.1 fL (7.4-10.4); MONOCYTES 11.3 % (2-11); NEUTROPHILS 64.9 % (40-80); PLATELET COUNT 142 10x3/uL (130-400); RDW 14.6 % (11.5-14.5); WBC 6.4 10x3/uL (4.8-10.8)
--- NOTE | 2018-06-19 09:30 | NUR ---
PT ARRIVED BY STRETCHER. ATTACHED TO MONITORS. FAMILY AT BEDSIDE. PT SUPINE. LEFT GROIN DRESSING C/D/I. NO S/S HEMATOMA NOTED. RIGHT PEDAL PULSE PALPABLE.
--- NOTE | 2018-06-19 09:45 | NUR ---
PT RESTING COMFORTABLY. LEFT GROIN DRESSING C/D/I. NO S/S OF HEMATOMA NOTED. LEFT PEDAL PULSE PALPABLE. FAMILY AT BEDSIDE. VSS. PT RESTING COMFORTABLY
--- NOTE | 2018-06-19 10:15 | NUR ---
LEFT GROIN DRESSING C/D/I. NO S/S OF HEMATOMA NOTED. TOLERATING SIPS OF COLA. DENIES NAUSEA. VSS. PT'S FAMILY AT BEDSIDE.
--- NOTE | 2018-06-19 10:45 | NUR ---
PT RESTING COMFORTABLY. VSS. LEFT GROIN DRESSING C/D/I. NO S/S OF HEMATOMA NOTED. FAMILY AT BEDSIDE.
--- NOTE | 2018-06-19 11:15 | NUR ---
LEFT GROIN DRESSING C/D/I. NO S/S OF HEMATOMA NOTED. LEFT PEDAL PULSE PRESENT. VSS. FAMILY AT BEDSIDE.
--- NOTE | 2018-06-19 12:15 | NUR ---
LEFT GROIN DRESSING C/D/I. NO S/S OF HEMATOMA NOTED. PT ON ROOM AIR. SET UP WITH SANDWICH TRAY AND DRINK. DENIES NAUSEA. VSS.
--- NOTE | 2018-06-19 12:54 | NUR ---
LEFT AC PIV D/C'D WITH CATH TIP INTACT. PT TOLERATED FOOD AND DRINK. DENIES NAUSEA. LEFT GROIN DRESSING C/D/I. NO S/S OF HEMATOMA NOTED. RIGHT PEDAL PULSE PALPABLE. PT INSTRUCTED TO GET UP AND GET DRESSED AT THIS TIME.
--- NOTE | 2018-06-19 13:05 | NUR ---
PT AMBULATED TO RESTROOM. VOIDED WITHOUT DIFFICULTY.
--- NOTE | 2018-06-19 13:10 | NUR ---
DISCUSSED DISCHARGE INSTRUCTIONS WITH PT AND PT'S FAMILY. THEY VOICED UNDERSTANDING.
--- NOTE | 2018-06-19 13:20 | NUR ---
PT TAKEN OUT BY WHEELCHAIR. NO S/S OF DISTRESS NOTED. ALL BELONGINGS AND PAPERWORK IN HAND. LEFT GROIN SITE SOFT. DRESSING C/D/I.
== END 2018-06-19 13:20 | disposition home or self-care (01) ==
LOC: D.CATH 07:27
PROVIDERS: ATTEND Internal Medicine Interventional Cardiology
DX: I25.119 Atherosclerotic heart disease of native coronary artery with unspecified angina pectoris (principal); Z01.812 Encounter for preprocedural laboratory examination
CPT/HCPCS: 92920; C9600

== ENCOUNTER 2019-10-21 06:49 | Day surgery (SDC) | payer MEDICARE, OTHER ==
[~2019-10-21] VITALS: Ht 177.8 cm; Wt 99.0 kg
--- NOTE | ~2019-10-21 | HEMODYNAMI ---
PATIENT:ALLYN MCKAY MEDICAL RECORD: [id number] : 36 LOCATION:[facility] ADMISSION DATE: 10/21/19 Generatedon:10/21/201910:36 Patient name: ALLYN MCAKY Patient #: [id number] : 1940 Date of study: 10/21/2019 Page: Of Hemodynamic Procedure Report Patient Data Patient Demographics Procedure consent was obtained First Name: ALLYN Gender: Male Last Name: NELY : 1940 [facility] Initial: E Age: 79 year(s) Patient #: [id number] Race: Unknown SSN: [id number] Additional ID: [id number] Contact details Address: [address] [place] [address] State: [place] City: [facility] Zip code: [address] Past Medical History Allergies: No allergy information Admission Admission Data Admission Date: 10/21/2019 Admission Time: 6:49 Arrival Date: 10/21/2019 Arrival Time: 9:00 Admit Source: Other Insurance Payor: Medicare [facility] #: [id number] Height (in.): 69.69 BSA: 2.16 (m2) Height (cm.): 177 BMI: 31.6 (kg/m2) Weight (lbs.): 218.26 Weight (kg.): 99 Lab Results Lab Result Date: 10/21/2019 Lab Result Time: 0:00 Biochemistry Name Units Result Min Max BUN mg/dl 25 --(----)-* 7 18 Creatinine mg/dl 1.4 --(----)*- 0.6 1.3 eGFR ml/min 52 *-(----)-- 90 120 NONAFRICAN CBC Name Units Result Min Max Hemoglobin g/dl 12.9 -*(----)-- 13.5 17.5 Procedure Procedure Types Cath Procedure Diagnostic Procedure LHC LHC w/Coronaries w/Grafts Sedation Charges Moderate Sedation up to 45 minutes PCI Procedure Coronary Stent Coronary Stent Initial Hemochron ACT Test Procedure Description Procedure Date Procedure Date: 10/21/2019 Procedure Start Time: 9:58 Procedure End Time: 10:28 Procedure Staff Name Function Rubin Puga MD Performing Physician Verito Arana RT Monitor Darren Gabriel RT Scrub Niranjan Serna RN Nurse Procedure Data Cath Procedure Fluoroscopy Diagnostic fluoroscopy Total fluoroscopy Time: 6.1 time: 6.1 min min Diagnostic fluoroscopy Total fluoroscopy dose: dose: 1079 mGy 1079 mGy Contrast Material Contrast Material Type Amount (ml) Isovue 300 109 Entry Location Entry Primary Successful Side Size Upsize Upsize Entry Closure Succes sful Closure Location (Fr) 1 (Fr) 2 (Fr) Remarks Device Remarks Femoral Right 5 Fr 6 Fr Exoseal artery Short Estimated blood loss: 5 ml Diagnostic catheters Device Type Used For End Catheter Placement MULTIPACK JL 4.0 5Fr Left Coronary catheter Angiography DIAGNOSTIC AR MOD 5Fr Multi-vessel Catheter ([id number]) Angiography DIAGNOSTIC IM 5Fr Multi-vessel catheter ([id number]) Angiography MULTIPACK Pigtail 5 Fr LV Angiography catheter Procedure Complications No complications Procedure Medications Medication Administration Route Dosage Oxygen etCO2 Nasal cannula 2 l/min Lidocaine 2% added to field 20 Heparin Flush Bag added to field 2 bags (1000units/500ml NS) 0.9% NaCl I.V. 100 ml/hr Versed I.V. 1 mg Fentanyl I.V. 50 mcg Versed I.V. 1 mg Fentanyl I.V. 50 mcg Versed I.V. 1 mg Heparin Bolus I.V. 9000 units Versed I.V. 1 mg Plavix P.O. 600 mg Nitroglycerin IC/IA I.C. 100 mcg Hemodynamics Rest BSA: 2.16 (m2) HGB: 12.9 (g/dl) O2 Consumption: Estimated: 242.6 (ml/min) O2 Con sumption indexed: Estimated:112.31 (ml/min/m) Heart Rate: 65 (bpm) Pressure Samples Time Site Value (mmHg) Purpose Heart Use Rate(bpm) 10:11 LV 131/2,18 Snapshot 55 Gradients Valve Time Site Site Mean SEP/DFP Peak To Heart Use 1 2 (mmHg) (sec/min) Peak Rate (mmHg) (bpm) Aortic 10:12 LV AO 61 Snapshots Pre Cath Intra NCS Post Cath Vital Signs Time Heart Resp SPO2 etCO2 NIBP (mmHg) Rhythm Pain Sedation Rate (ipm) (%) (mmHg) Status Level (bpm) 9:01:30 61 14 100 0 166/85(140) NSR 0 (11) 10(A) , No pain 9:05:57 64 21 99 44.2 169/78(139) NSR 0 (11) 10(A) , No pain 9:10:23 57 18 100 38.2 149/70(126) NSR 0 (11) 10(A) , No pain 9:14:45 57 16 100 35.2 150/76(98) NSR 0 (11) 10(A) , No pain 9:19:07 60 15 100 38.2 143/76(124) NSR 0 (11) 10(A) , No pain 9:23:25 60 16 100 37.5 137/71(115) NSR 0 (11) 10(A) , No pain 9:27:43 58 13 100 39.7 137/72(103) NSR 0 (11) 10(A) , No pain 9:31:59 56 12 100 41.2 134/65(104) NSR 0 (11) 10(A) , No pain 9:36:19 55 14 100 18 135/66(108) NSR 0 (11) 10(A) , No pain 9:40:39 53 11 99 22.5 131/66(110) NSR 0 (11) 10(A) , No pain 9:44:53 54 11 98 0 127/69(105) NSR 0 (11) 9(A) , No pain 9:49:09 54 10 98 0 122/63(95) NSR 0 (11) 9(A) , No pain 9:53:15 52 10 99 43.5 112/63(100) NSR 0 (11) 9(A) , No pain 9:58:14 54 12 99 24.7 131/70(113) NSR 0 (11) 9(A) , No pain 10:02:30 53 12 100 19.5 130/68(106) NSR 0 (11) 9(A) , No pain 10:06:50 53 11 100 23.2 124/62(100) NSR 0 (11) 9(A) , No pain 10:11:50 58 11 100 14.2 126/62(98) NSR 0 (11) 9(A) , No pain 10:16:04 54 11 100 11.2 134/72(109) NSR 0 (11) 9(A) , No pain 10:20:11 55 12 99 1.5 119/65(96) NSR 0 (11) 10(A) , No pain 10:24:25 56 15 99 29.2 137/64(111) NSR 0 (11) 10(A) , No pain Medications Time Medication Route Dose Verified Delivered Reason Notes Effectiveness by by 9:01:22 Oxygen etCO2 2 Rubin Buffie used for Nasal l/min Jori Serna RN procedure cannula 9:01:29 Lidocaine 2% added 20ml Rubin Rubin for local to vial Jori Puga MD anesthetic field 9:01:34 Heparin Flush added 2 Rubin Rubin used for Bag to bags Jori Puga MD procedure (1000units/500ml field NS) 9:01:43 0.9% NaCl I.V. 100 Rubin Buffie Per physician ml/hr Jori Serna RN 9:40:23 Versed I.V. 1 mg Rubin Buffie for sedation Jori Serna RN 9:40:28 Fentanyl I.V. 50 Rubin Buffie for sedation mcg Jori Serna RN 9:48:11 Versed I.V. 1 mg Rubin Buffie for sedation Jori Serna RN 9:48:14 Fentanyl I.V. 50 Rubin Buffie for sedation mcg Jori Serna RN 10:04:52 Versed I.V. 1 mg Rubin Buffie for sedation Jori Serna RN 10:11:49 Versed I.V. 1 mg Rubin Buffie for sedation Jori Serna RN 10:12:13 Nitroglycerin I.C. 100 Rubin Rubin for IC/IA mcg Jori Puga MD vasodilation 10:15:40 Heparin Bolus I.V. 9000 Rubin Buffie for verif ied units Jori Serna RN anticoagulation with dr puga 10:25:03 Plavix P.O. 600 Rubin Buffie for mg Jori Serna RN antiplatelet therapy Procedure Log Time Note 8:42:16 Informed consent obtained and on chart 8:42:35 Buffie Serna RN sent for patient. Start room use. 8:42:38 Procedure Status Elective Heart Cath (OP). 8:42:40 Time tracking: Regular hours (M-F 7:00 - 5:00) 8:42:42 Plan of Care:Hemodynamics will remain stable., Cardiac rhythm will remain stable., Comfort level will be maintained., Respiratory function will remain adequate., Patient/ family verbilizes understanding of procedure., Procedure tolerated without complication., Recovers from procedure without complications.. 8:44:31 H&P Date Dictated: 10/02/2019 Within 30 days and on chart., H&P Addendum completed by physician on day of procedure. (MUST COMPLETE FOR ALL OUTPATIENTS). 8:44:37 Patient allergic to No allergy information 8:54:32 Patient received from Pre/Post Procedure Room to CCL 1 Alert and oriented. Tansferred to table in Supine position. 8:54:34 Warm blankets applied, and shaji hugger turned on for patient comfort. 8:54:34 Correct patient and procedure confirmed by team. 8:54:34 ECG and BP/O2 sat monitors applied to patient. 9:00:15 Vital chart was started 9:01:22 Oxygen 2 l/min etCO2 Nasal cannula was administered by Niranjan Serna RN; used for procedure; Verbal order read back and verified. 9:01:29 Lidocaine 2% 20ml vial added to field was administered by Rubin Puga MD; for local anesthetic; Verbal order read back and verified. 9:01:34 Heparin Flush Bag (1000units/500ml NS) 2 bags added to field was administered by Rubin Puga MD; used for procedure; Verbal order read back and verified. 9:01:43 0.9% NaCl 100 ml/hr I.V. was administered by Niranjan Serna RN; Per physician; Verbal order read back and verified. 9:04:19 Baseline sample Acquired. 9:04:24 Rhythm: sinus rhythm 9:04:26 Full Disclosure recording started 9:04:27 Pre-procedure instructions explained to patient. 9:04:27 Pre-op teaching completed and patient verbalized understanding. 9:04:29 Family in patients room. 9:04:30 Patient NPO since Midnight. 9:04:32 Is the patient allergic to Iodine/contrast media? No. 9:04:33 Was the patient premedicated? Yes 9:04:33 Is patient on blood thinner?Yes 9:04:37 ACC The patient was administered the following blood thiners within the last 24 hours: ACCAspirin 9:04:39 Patient diabetic? Yes. 9:04:41 If diabetic: On Metformin? No 9:04:44 Previous problem with sedation/anesthesia? No ? 9:04:46 Snore? Yes 9:04:47 Sleep apnea? No 9:04:48 Deviated septum? No 9:04:48 Opens mouth fully? Yes 9:04:49 Sticks out tongue? Yes 9:04:51 Airway obstruction? No ? 9:04:59 Dentures? Yes bridge in tight 9:05:04 Pre procedure: right dorsailis pedis pulse 2+ Normal; easily identifiable; not easily obliterated 9:05:07 Pre procedure: left dorsailis pedis pulse 2+ Normal; easily identifiable; not easily obliterated 9:05:12 Patient pain scale 0/10 ?. 9:05:20 IV patent on arrival in right forearm with 0.9% NaCl at [facility]. 9:05:23 Lab results completed and on chart. 9:13:51 Risk of Mortality: 0.3 9:13:54 Risk of blood transfusion: 0.2 9:13:58 Risk of HUMA: 1.5 9:14:01 Right groin area was prepped with chlora-prep and draped in sterile fashion 9:14:03 Alarms reviewed by R. N. 9:14:04 Sharps counted by scrub and verified by R.N. 9:14:05 Physician arrived 9:14:07 Right groin site verified by team. 9:14:12 Fire Safety Assessment: A--An alcohol-based skin anteseptic being used preoperatively., C--Open oxygen or nitrous oxide is being used., D--An ESU, laser, or fiber-optic light is being used. 9:14:16 Physical assessment completed. ASA score P 2 - A patient with mild systemic disease as per Rubin Puga MD. 9:14:22 3a) 45-59 Moderately reduced kidney function. 9:14:41 Maximum allowable contrast dose (3.7 X eGFR X 0.75)144 ml. 9:14:45 Sedation plan: IV Moderate Sedation Medication:Versed, Fentanyl 9:14:49 Use device set Femoral Dx 9:14:50 ACIST Syringe (27625) opened to sterile field. 9:14:50 Bag Decanter (2002S) opened to sterile field. 9:14:50 Medline Cath Pack ([id number]) opened to sterile field. 9:14:52 ACIST Hand Control (37608) opened to sterile field. 9:14:52 ACIST Manifold (67663) opened to sterile field. 9:14:53 DIAGNOSTIC Multipack 5Fr catheter set ([id number]) opened to sterile field. 9:14:53 Tegaderm 4 x 4 (1626W) opened to sterile field. 9:14:54 SHEATH 5FR Roosevelt (VEQ220) opened to sterile field. 9:14:55 EMERALD Guide Wire (912-507) opened to sterile field. 9:25:05 --------ALL STOP TIME OUT------ 9:39:29 Zero performed for pressure channel P1 9:40:12 Final Timeout: patient, procedure, and site verified with staff and physician. All members of the team are in agreement. 9:40:23 Versed 1 mg I.V. was administered by Niranjan Serna RN; for sedation; Verbal order read back and verified. 9:40:28 Fentanyl 50 mcg I.V. was administered by Niranjan Serna RN; for sedation; Verbal order read back and verified. 9:48:11 Versed 1 mg I.V. was administered by Niranjan Serna RN; for sedation; Verbal order read back and verified. 9:48:14 Fentanyl 50 mcg I.V. was administered by Niranjan Serna RN; for sedation; Verbal order read back and verified. 9:55:30 Procedure started. 9:58:22 Local anesthetic to right femoral artery with Lidocaine 2% by Rubin Puga MD.INITIAL ACCESS ONLY 9:58:34 A 5 Fr sheath was inserted into the Right Femoral artery 9:59:50 A MULTIPACK JL 4.0 5Fr catheter was advanced over the wire and used for Left Coronary Angiography. 10:02:29 LCA angiography performed. 10:02:33 Injector settings: Ml/sec: 3, Volume: 6, 10:02:35 Catheter removed. 10:04:52 Versed 1 mg I.V. was administered by Niranjan Serna RN; for sedation; Verbal order read back and verified. 10:08:09 A DIAGNOSTIC AR MOD 5Fr Catheter ([id number]) was advanced over the wire and used for Multi-vessel Angiography. 10:08:14 SVG to RCA angiography performed. 10:08:21 Catheter removed. 10:08:42 A DIAGNOSTIC IM 5Fr catheter ([id number]) was advanced over the wire and used for Multi-vessel Angiography. 10:09:29 ANN to LAD angiography performed. 10:09:34 Catheter removed. 10:10:32 A MULTIPACK Pigtail 5 Fr catheter was advanced over the wire and used for LV Angiography. 10:11:28 Asahi Minamo 300cm wire opened to sterile field. 10:11:28 TUBING High Pressure Extension Tubing (Jori) ([id number]) opened to sterile field. 10:11:29 INFLATOR Merit BasixCompak (PU6990) opened to sterile field. 10:11:30 SHEATH 6FR Roosevelt (BLF282) opened to sterile field. 10:11:49 Versed 1 mg I.V. was administered by Niranjna Serna RN; for sedation; Verbal order read back and verified. 10:11:52 GUIDE 6FR XBLAD 3.5 catheter ([id number]) opened to sterile field. 10:11:55 LV hemodynamics recorded. 10:11:56 LV gram done using CABAN 10:11:58 Injector settings: Ml/sec: 5, Volume: 15, 10:12:07 EF : 40 % 10:12:13 Nitroglycerin IC/IA 100 mcg I.C. was administered by Rubin Puga MD; for vasodilation; Verbal order read back and verified. 10:12:15 Catheter removed. 10:12:29 Sheath upsized to a 6 Fr Short. 10:12:40 6 Fr xblad 3.5 guide catheter was inserted over the wire 10:12:48 ACC Pre-intervention GHADA Flow is 3. 10:13:01 Pre PCI Site: [place] Ram[place] has 80% stenosis. 10:13:12 minamo wire advanced. 10:15:30 Wire advanced across lesion. 10:15:40 Heparin Bolus 9000 units I.V. was administered by Niranjan Serna RN; for anticoagulation; verified with dr puga Verbal order read back and verified. 10:22:07 Place stent Inflation Number: 1 A ISAAK OTW 2.25 x 22 stent ([id number]) was prepped and advanced across the Ramus 80. The stent was deployed at 12 EMMETT for 0:10 (min:sec) 0. 10:23:21 Stent catheter was removed intact over wire. 10:23:22 Wire removed. 10:23:22 Guide catheter removed. 10:23:36 EXOSEAL 6Fr (EX600) opened to sterile field. 10:23:47 Sheath removed intact; hemostasis achieved with Exoseal to the Right Femoral artery. 10:23:49 Procedure ended.(Physican Out) 10:24:15 Fluoroscopy time 06.10 minutes. 10:24:20 Flurop Dose total: 1079 10:24:20 Fluoroscopy dose: 1079 mGy 10:24:26 Dose Area Product 10438 mGy/cm. 10:24:31 Contrast amount:Isovue 300 109ml. 10:24:34 Maximum allowable dose exceeded? No. 10:24:35 Sharps counted by scrub and verified by R.N. 10:25:03 Plavix 600 mg P.O. was administered by Niranjan Serna RN; for antiplatelet therapy; Verbal order read back and verified. 10:25:36 Insertion/operative site no bleeding no hematoma. 10:25:39 Post-op/insertion site Right Femoral artery dressed using a 4 x 4 and Tegaderm. 10:25:41 Post Procedure Pulses reassessed and unchanged 10:25:43 Post procedure rhythm: unchanged. 10:25:46 Estimated blood loss: 5 ml 10:25:48 Post procedure instruction explained to patient.Patient verbalizes understanding. 10:25:48 Patient needs reinforcement of post procedure teaching. 10:25:56 Procedure type changed to Cath procedure, Diagnostic procedure, LHC, LHC w/Coronaries w/Grafts, Sedation Charges, Moderate Sedation up to 45 minutes, PCI procedure, Coronary Stent, Coronary Stent Initial, Hemochron ACT Test 10:27:25 Procedure and supply charges have been captured, reviewed, submitted and are correct. 10:27:32 Procedure Complication : No complications 10:27:38 Vital chart was stopped 10:28:00 [facility] Findings: MVD- PCI performed (see procedure note) 10:28:03 Operative report dictated upon procedure completion. 10:28:03 See physician's report for complete and final results. 10:28:06 Report given to Pre/Post Procedure Room. 10:28:12 Patient transfered to Pre/Post Procedure Room with Stretcher. 10:28:15 Procedure ended. 10:28:15 Full Disclosure recording stopped 10:28:23 ACC-PCI Only Patient was given prescriptions, or instructed by Rubin Puga MD to start/continue the following medications upon discharge: Plavix 10:28:27 End room use (Document Last) 10:29:53 Arrival Date: 10/21/2019 9:00:00 AM 10:30:13 Admit Source: Other 10:30:17 Insurance Payor : Medicare 10:31:11 ACT drawn and resulted at 320 seconds. (normal therapeutic range 180-240 seconds). 10:32:34 Patient Height : 69.69 inches 10:32:37 Patient Weight : 218.26 lbs 10:33:20 Lab Result : BUN 25 mg/dl 10:33:20 Lab Result : Creatinine 1.4 mg/dl 10:33:20 Lab Result : eGFR NONAFRICAN 52 ml/min 10:33:20 Lab Result : Hemoglobin 12.9 g/dl Intervention Summary Intervention Notes Time ActionType Lesion and Equipment Action# Pressure Duration Attributes Used 10:22:07 Place stent [place] ISAAK OTW 2.25 1 12 00:10 x 22 stent ([id number]) Device Usage Item Name Manufacture Quantity Catalog Hospital Part Current Mini [facility] Lot# / Number Charge Number Stock Stock Serial# Code ACIST Syringe Acist 1 23809 082964 031356 109911 20 (90757) Medical Systems Inc Bag Decanter Microtek 1 2001S 070794 26890 478846 5 (2001S) Medical Inc. Medline Cath Medline 1 [id number] 510121 45737 669703 5 Pack ([id number]) ACIST Hand Acist 1 17086 288980 857269 253436 5 Control Medical (29773) Systems Inc ACIST Acist 1 16427 527224 946166 154369 5 Manifold Medical (17795) Systems Inc DIAGNOSTIC Cardinal 1 ZF0486 549297 91025 559128 30 Multipack 5Fr Health catheter set (FP9972) Tegaderm 4 x 3M 1 1626W 690385 673159 344622 5 4 (1626W) SHEATH 5FR Terumo 1 SQJ177 191058 462204 995130 5 Roosevelt (ADP926) EMERALD Guide Cardinal 1 502-455 503991 706094 513286 5 Wire Health (502-455) MULTIPACK JL Cardinal 1 092237 5 4.0 5Fr Health catheter DIAGNOSTIC AR Cardinal 1 [id number] 505762 687010 396233 15 MOD 5Fr Health Catheter (601514F) DIAGNOSTIC IM Cardinal 1 [id number] 521319 754214 281857 5 5Fr catheter Health (442649K) MULTIPACK Cardinal 1 851011 5 Pigtail 5 Fr Health catheter [facility] Intecc 1 [id number] 459150 8609114 748431 0 300cm wire TUBING High Merit 1 [id number] 372666 67420 741723 10 Pressure Medical Extension Tubing (Puga) (LQ4000L) INFLATOR Merit 1 DW0998 889676 157592 207703 15 Merit Medical BasixCompak (AK8638) SHEATH 6FR Terumo 1 JAE339 407434 129205 710170 40 Roosevelt (CXG353) GUIDE 6FR Cardinal 1 [id number] 568995 940316 525152 10 XBLAD 3.5 Health catheter (50498859) ISAAK OTW 2.25 Medtronic 1 [id number] 823249 90606 105743 5 [id number] x 22 stent ([id number]) EXOSEAL 6Fr Cardinal 1 EX600 995334 941419 443977 10 (EX600) Health Signature Audit [place] Stage Time Signature Unsigned Intra-Procedure 10/21/2019 Verito Arana 10:35:43 AM RT(R) Intra-Procedure 10/21/2019 Niranjan Serna RN 10:36:16 AM Intra-Procedure 10/21/2019 Rubin Puga MD 10:36:48 AM [place] [address] [place] [address]
[2019-10-21] MEDS ORDERED: BETAPACE 120 M120 MG PO (07:54)
[2019-10-21 08:07] VITALS: BP 131/64; Ht 177.8 cm; Wt 99.0 kg
[2019-10-21 08:20] LABS: BASOPHILS 0.2 % (0-2); EOSINOPHILS 2.5 % (0-7); HEMATOCRIT 38.9 % (42.0-54.0); HEMOGLOBIN 12.9 g/dL (13.5-17.5); IMMATURE GRANULOCYTES 0.3 % (0-5); LYMPHOCYTES 22.1 % (15-50); MCH 31.4 pg (26.0-34.0); MCHC 33.2 g/dL (31.0-37.0); MCV 94.6 fL (80.0-100.0); MONOCYTES 11.2 % (2-11); NEUTROPHILS 63.7 % (40-80); PLATELET COUNT 139 10x3/uL (130-400); RBC 4.11 10x6/uL (4.20-6.10); RDW 15.1 % (11.5-14.5); WBC 6.1 10x3/uL (4.8-10.8)
[2019-10-21 08:34] LABS: ANION GAP 8.5 mmol/L (8-16); CALCIUM 9.4 mg/dL (8.5-10.1); CARBON DIOXIDE 30.1 mmol/L (21.0-32.0); CREATININE - SERUM 1.4 mg/dL (0.6-1.3); POTASSIUM - SERUM 4.6 mmol/L (3.5-5.1)
[2019-10-21 08:41] LABS: LDL-HDL RATIO 1.3 ratio (1.5-3.5)
--- NOTE | 2019-10-21 10:45 | NUR ---
PT RECEIVED VIA STRETCHER FROM BIOMETRIC SCREENER VIA STRETCHER FOR RECOVERY. PT SLEEPY BUT VERBALLY AROUSABLE. PT DENIES PAIN OR DISCOMFORT AT THIS TIME. IV PATENT INFUSING VIA ORDERS. PT PLACED ON CARDIAC MONITORS AND O2 VIA NC AT 2L. HR SB RATE 56, BP 144/70, RR 15, SAT 99. R GROIN W 6FR EXOCELE, DRESSING CDI NO S/S HEMATOMA OR BLEEDING. LEG PINK AND WARM, PEDAL PULSES PALPABLE. PT INSTRUCTED TO KEEP HEAD ON PILLOW AND LEG STRAIGHT, HE VERBALIZED UNDERSTANDING. CALL LIGHT IN REACH, AT BS
[2019-10-21] MEDS ORDERED: PLAVIX75 MG PO (10:53)
--- NOTE | 2019-10-21 11:15 | NUR ---
PT SLEEPING COMFORTABLY, R GROIN SOFT, DRESSING CDI NO S/S HEMATOMA OR BLEEDING NOTED. VSS AT PRESENT. AT BS, CALL LIGHT AT REACH
--- NOTE | 2019-10-21 12:00 | NUR ---
PT REMAINS RESTING COMFORTABLY, DENIES PAIN OR NEEDS. TOLERATING PO FLUIDS W/O DIFFICULITY. VSS AT PRESENT. R GROIN SOFT, DRESSING CDI NO S/S HEMATOMA OR BLEEDING NOTED. CALL LIGHT IN REACH, AT BS.
--- NOTE | 2019-10-21 12:34 | NUR ---
PT SLEEPING COMFORTABLY. VSS AT PRESENT. R GROIN SOFT, DRESSING CDI NO S/S HEMATOMA NOTED. LEG REMAINS PINK AND WARM, PEDAL PULSES PALPABLE. CALL LIGHT IN REACH
--- NOTE | 2019-10-21 13:00 | NUR ---
R GROIN SOFT, DRESSING REMAINS CDI NO S/S HEMATOMA OR BLEEDING NOTED. CALL LIGHT IN REACH, REMAINS AT BS.
--- NOTE | 2019-10-21 13:30 | NUR ---
R GROIN SOFT, NO S/S HEMATOMA OR BLEEDING. HOB ELEVATED SLIGHTLY. O2 REMOVED, SAT 97 ON ROOM AIR. SANDWICH AND COFFEE SERVED. URINAL GIVEN BUT PT WANTS TO WAIT UNTIL HE CAN GET UP TO GO TO THE BR. VSS AT PRESENT. CALL LIGHT IN REACH
--- NOTE | 2019-10-21 14:00 | NUR ---
GROIN SOFT, DRESSING REMAINS CDI NO S/S HEMATOMA. PT TOLERATED LUNCH W/O NAUSEA. PT DENIES PAIN OR NEEDS AT THIS TIME. VSS. CALL LIGHT IN REACH
[2019-10-21] MEDS ORDERED: NITRO-DUR1 EAC3 TOPICAL (14:19)
--- NOTE | 2019-10-21 14:20 | NUR ---
DISCHARGE INSTRUCTIONS REVIEWED W PT AND EXPLAINED IMPORTANCE OF GETTING PLAVIX PRESCRIPTION FILLED AND STARTING TOMORROW. THEY BOTH VERBALIZED UNDERSTANDING. IV REMOVED W CATH INTACT, MONITORS REMOVED. R GROIN SOFT, NO S/S HEMATOMA. PT UP TO DRESS FOR DISCHARGE.
--- NOTE | 2019-10-21 14:30 | NUR ---
1420 PT AMBULATED TO BR, VOIDING W/O DIFFICULITY. PT THEN DISCHARGED VIA WC TO WAITING IN PRIVATE VEHICLE. PT HAD ALL BELONGINGS AND DISCHARGE PAPERWORK.
== END 2019-10-21 14:30 | disposition home or self-care (01) ==
LOC: D.CATH 06:49 → EDSTATUS 09:00 → D.CATH 14:30
PROVIDERS: ATTEND Internal Medicine Cardiovascular Disease
DX: I25.110 Atherosclerotic heart disease of native coronary artery with unstable angina pectoris (principal); E78.5 Hyperlipidemia, unspecified; I10 Essential (primary) hypertension; I48.91 Unspecified atrial fibrillation; E11.9 Type 2 diabetes mellitus without complications; I25.2 Old myocardial infarction; Z79.4 Long term (current) use of insulin
CPT/HCPCS: 93459; C9600

== ENCOUNTER 2020-09-08 06:51 | Day surgery (SDC) | payer MEDICARE, OTHER ==
[~2020-09-08] VITALS: Ht 177.8 cm; Wt 100.5 kg
--- NOTE | ~2020-09-08 | HEMODYNAMI ---
PATIENT:ALLYN MCKAY MEDICAL RECORD: [id number] : 36 LOCATION:[facility] ADMISSION DATE: 09/08/20 Generatedon:19:17 Patient name: ALLYN MCKAY Patient #: [id number] : 1940 Date of study: 09/08/2020 Page: Of Hemodynamic Procedure Report Patient Data Patient Demographics Procedure consent was obtained First Name: ALLYN Gender: Male Last Name: NELY : 1940 Middle Initial: E Age: 80 year(s) Patient #: [id number] Race: Unknown SSN: [id number] Additional ID: [id number] Contact details Address: [address] [place] [address] State: [place] City: [facility] Zip code: [address] Past Medical History Allergies: No allergy information Admission Admission Data Admission Date: 09/08/2020 Admission Time: 6:51 Admit Source: Other Lab Results Lab Result Date: 09/08/2020 Lab Result Time: 0:00 Biochemistry Name Units Result Min Max BUN mg/dl 23 --(----)-* 7 18 Creatinine mg/dl 1.3 --(---*)-- 0.6 1.3 CBC Name Units Result Min Max Hemoglobin g/dl 11.9 *-(----)-- 13.5 17.5 Procedure Procedure Types Cath Procedure Diagnostic Procedure LHC LHC w/Coronaries w/Grafts Aortic Root Angiography Sedation Charges Moderate Sedation 10-24 minutes Procedure Description Procedure Date Procedure Date: 09/08/2020 Procedure Start Time: 8:57 Procedure End Time: 9:15 Procedure Staff Name Function Rubin Hsieh MD Performing Physician Sukumar Lantigua RT Monitor Vernon Aguirre RN Nurse Sukumar Lantigua RT Scrub Procedure Data Cath Procedure Fluoroscopy Diagnostic fluoroscopy Total fluoroscopy Time: 3.6 time: 3.6 min min Diagnostic fluoroscopy Total fluoroscopy dose: 796 dose: 796 mGy mGy Contrast Material Contrast Material Type Amount (ml) Isovue 300 100 Entry Location Entry Primary Successful Side Size Upsize Upsize Entry Closure Succes sful Closure Location (Fr) 1 (Fr) 2 (Fr) Remarks Device Remarks Femoral Right 5 Fr Exoseal artery Estimated blood loss: 5 ml Diagnostic catheters Device Type Used For End Catheter Placement MULTIPACK JL 4.0 5Fr Left Coronary catheter Angiography DIAGNOSTIC AR MOD 5Fr SVG Angiography Catheter ([id number]) DIAGNOSTIC IM 5Fr SVG Angiography catheter ([id number]) MULTIPACK Pigtail 5 Fr LV Angiography catheter Procedure Complications No complications Procedure Medications Medication Administration Route Dosage 0.9% NaCl I.V. 100 ml/hr Oxygen etCO2 Nasal cannula 2 l/min Heparin Flush Bag added to field 2 bags (1000units/500ml NS) Lidocaine 2% added to field 20 Versed I.V. 1 mg Fentanyl I.V. 50 mcg Versed I.V. 1 mg Fentanyl I.V. 50 mcg Hemodynamics Rest HGB: 11.9 (g/dl) Heart Rate: 56 (bpm) Pressure Samples Time Site Value (mmHg) Purpose Heart Use Rate(bpm) 9:11 LV 86/0,7 EDP 67 9:11 AO 104/40(64) Pullback 56 9:11 LV 105/0,7 Pullback 56 Gradients Valve Time Site 1 Site 2 Mean SEP/DFP Peak To Heart Use (mmHg) (sec/min) Peak Rate (mmHg) (bpm) Aortic 9:11 LV AO 7 14 1 56 105/0,7 104/40(64) Calculations Valve P-P Mean Valve Index Valve Source Name Gradient Area Flow (cm2) Aortic 1 7 1 7 Snapshots Pre Cath Intra NCS Post Cath Vital Signs Time Heart Resp SPO2 etCO2 NIBP (mmHg) Rhythm Pain Sedation Rate (ipm) (%) (mmHg) Status Level (bpm) 8:39:59 54 14 100 35.2 145/68(116) SB 0 (11) 10(A) , No pain 8:44:13 54 18 100 36 145/70(98) SB 0 (11) 10(A) , No pain 8:48:27 53 22 100 0 132/62(110) SB 0 (11) 10(A) , No pain 8:52:43 55 14 98 14.2 118/64(87) SB 0 (11) 10(A) , No pain 8:56:53 52 11 96 12.7 122/64(99) SB 0 (11) 9(A) , No pain 9:01:05 53 9 98 39.8 121/63(83) SB 0 (11) 9(A) , No pain 9:05:17 54 9 99 34.5 117/58(91) SB 0 (11) 9(A) , No pain 9:09:27 54 10 98 36.7 116/61(76) SB 0 (11) 9(A) , No pain 9:13:37 60 13 98 14.2 110/62(89) SB 0 (11) 10(A) , No pain Medications Time Medication Route Dose Verified Delivered Reason Notes Effe ctiveness by by 8:38:58 0.9% NaCl I.V. 100 Rubin Vernon used for ml/hr Jori Aguirre home theater expert 8:39:08 Oxygen etCO2 2 Rubin Vernon used for Nasal l/min Jori Aguirre RN procedure cannula 8:39:19 Heparin Flush added 2 Rubin Rubin used for Bag to bags Jori Hsieh MD procedure (1000units/500ml field NS) 8:39:30 Lidocaine 2% added 20ml Rubin Rubin for local to vial Jori Hsieh MD anesthetic field 8:54:48 Versed I.V. 1 mg Rubin Vernon for Jori Aguirre RN sedation 8:54:53 Fentanyl I.V. 50 Rubin Vernon for mcg Jori Aguirre RN sedation 8:59:47 Versed I.V. 1 mg Rubin Vernon for Jori Aguirre RN sedation 8:59:50 Fentanyl I.V. 50 Rubin Vernon for mcg Jori Aguirre RN sedation Procedure Log Time Note 7:55:51 Admit Source: Other 7:56:16 Procedure Status Elective Heart Cath (OP). 8:29:58 Vrenon Aguirre RN sent for patient. Start room use. 8:38:42 Vital chart was started 8:38:58 0.9% NaCl 100 ml/hr I.V. was administered by Vernon Aguirre RN; used for procedure; Verbal order read back and verified. 8:39:08 Oxygen 2 l/min etCO2 Nasal cannula was administered by Vernon Aguirre RN; used for procedure; Verbal order read back and verified. 8:39:18 Time tracking: Regular hours (M-F 7:00 - 5:00) 8:39:19 Heparin Flush Bag (1000units/500ml NS) 2 bags added to field was administered by Rubin Hsieh MD; used for procedure; Verbal order read back and verified. 8:39:23 Plan of Care:Hemodynamics will remain stable., Cardiac rhythm will remain stable., Comfort level will be maintained., Respiratory function will remain adequate., Patient/ family verbilizes understanding of procedure., Procedure tolerated without complication., Recovers from procedure without complications.. 8:39:29 Patient received from Pre/Post Procedure Room to CCL 2 Alert and oriented. Tansferred to table in Supine position. 8:39:30 Lidocaine 2% 20ml vial added to field was administered by Rubin Hsieh MD; for local anesthetic; Verbal order read back and verified. 8:39:32 Signed procedure consent form obtained from patient. 8:39:32 Warm blankets applied, and shaji hugger turned on for patient comfort. 8:39:33 Correct patient and procedure confirmed by team. 8:39:34 ECG and BP/O2 sat monitors applied to patient. 8:39:35 Baseline sample Acquired. 8:39:39 Rhythm: sinus rhythm 8:39:40 Full Disclosure recording started 8:40:11 H&P Date Dictated: 09/02/2020 H&P Addendum completed by physician on day of procedure. (MUST COMPLETE FOR ALL OUTPATIENTS). 8:40:13 Pre-procedure instructions explained to patient. 8:40:13 Pre-op teaching completed and patient verbalized understanding. 8:40:16 Family in waiting room. 8:40:38 Patient NPO since Midnight. 8:41:03 Is the patient allergic to Iodine/contrast media? No. 8:41:05 Is patient on blood thinner?No 8:41:08 Patient diabetic? Yes. 8:41:09 If diabetic: On Metformin? No 8:41:11 ----Pre-sedation anethsthesia assessment.---- 8:41:14 Previous problem with sedation/anesthesia? No ? 8:41:15 Snore? Yes 8:41:16 Sleep apnea? No 8:41:18 Deviated septum? No 8:41:19 Opens mouth fully? Yes 8:41:21 Sticks out tongue? Yes 8:41:23 Airway obstruction? No ? 8:41:25 Dentures? No ? 8:41:28 Pre procedure: right femoral pulse 2+ Normal; easily identifiable; not easily obliterated 8:41:31 Patient pain scale 0/10 ?. 8:41:50 IV patent on arrival in right antecubital with 0.9% NaCl at O. 8:42:29 Lab Result : BUN 23 mg/dl 8:42:29 Lab Result : Creatinine 1.3 mg/dl 8:42:29 Lab Result : Hemoglobin 11.9 g/dl 8:42:33 Lab results completed and on chart. 8:48:18 [facility] website is down and not working. 8:48:24 Right groin area was prepped with chlora-prep and draped in sterile fashion 8:48:25 Alarms reviewed by R. N. 8:48:25 Sharps counted by scrub and verified by R.N. 8:48:27 Physician arrived 8:51:51 --------ALL STOP TIME OUT------ 8:51:52 Final Timeout: patient, procedure, and site verified with staff and physician. All members of the team are in agreement. 8:51:54 Right groin site verified by team. 8:53:11 Fire Safety Assessment: A--An alcohol-based skin anteseptic being used preoperatively., C--Open oxygen or nitrous oxide is being used., D--An ESU, laser, or fiber-optic light is being used. 8:53:16 Physical assessment completed. ASA score P 2 - A patient with mild systemic disease as per Rubin Hsieh MD. 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 8:53:59 Maximum allowable contrast dose (3.7 X eGFR X 0.75)155 ml. 8:54:04 Sedation plan: IV Moderate Sedation Medication:Versed, Fentanyl 8:54:24 Use device set Femoral Dx 8:54:25 ACIST Syringe (46924) opened to sterile field. 8:54:26 Bag Decanter () opened to sterile field. 8:54:27 Medline Cath Pack ([id number]) opened to sterile field. 8:54:28 ACIST Hand Control (05738) opened to sterile field. 8:54:29 ACIST Manifold (84085) opened to sterile field. 8:54:29 DIAGNOSTIC Multipack 5Fr catheter set ([id number]) opened to sterile field. 8:54:30 Tegaderm 4 x 4 (1626W) opened to sterile field. 8:54:32 SHEATH 5FR [place] ([id number]) opened to sterile field. 8:54:32 EMERALD Guide Wire (580-527) opened to sterile field. 8:54:48 Versed 1 mg I.V. was administered by Vernon Aguirer RN; for sedation; Verbal order read back and verified. 8:54:53 Fentanyl 50 mcg I.V. was administered by Vernon Aguirre RN; for sedation; Verbal order read back and verified. 8:57:30 Procedure started. 8:57:48 Local anesthetic to right femoral artery with Lidocaine 2% by Rubin Hsieh MD.INITIAL ACCESS ONLY 8:58:22 Zero performed for pressure channel P1 8:59:47 Versed 1 mg I.V. was administered by Vernon gAuirre RN; for sedation; Verbal order read back and verified. 8:59:50 Fentanyl 50 mcg I.V. was administered by Vernon Aguirre RN; for sedation; Verbal order read back and verified. 9:01:35 A 5 Fr sheath was inserted into the Right Femoral artery 9:01:50 A MULTIPACK JL 4.0 5Fr catheter was advanced over the wire and used for Left Coronary Angiography. 9:01:55 LCA angiography performed. 9:03:56 Catheter exchanged over wire. 9:04:06 A DIAGNOSTIC AR MOD 5Fr Catheter ([id number]) was advanced over the wire and used for SVG Angiography. 9:05:04 RCA angiography performed. 9:06:19 SVG to RCA occluded. 9:06:28 SVG to RPDA angiography performed. 9:07:01 SVG to Circ occluded. 9:07:07 Catheter exchanged over wire. 9:07:17 A DIAGNOSTIC IM 5Fr catheter ([id number]) was advanced over the wire and used for SVG Angiography. 9:07:24 ANN to LAD angiography performed. 9:09:51 Catheter exchanged over wire. 9:10:00 A MULTIPACK Pigtail 5 Fr catheter was advanced over the wire and used for LV Angiography. 9:10:08 LV angiography performed. 9:10:10 LV gram done using CABAN 9:10:12 LV hemodynamics recorded. 9:10:16 Injector settings: Ml/sec: 10, Volume: 20, 9:11:31 EF : 40 % 9:11:39 Aortic Root visualized 9:12:04 Procedure type changed to Cath procedure, Diagnostic procedure, LHC, [facility] w/Coronaries w/Grafts, Aortic Root Angiography, Sedation Charges, Moderate Sedation 10-24 minutes 9:12:49 Catheter removed. 9:12:59 Contrast amount:Isovue 300 100ml. 9:13:01 Maximum allowable dose exceeded? No. 9:13:17 Sheath removed intact; hemostasis achieved with Exoseal to the Right Femoral artery. 9:13:19 Procedure ended.(Physican Out) 9:13:30 Fluoroscopy time 03.60 minutes. 9:13:36 Fluoroscopy dose: 796 mGy 9:13:36 Flurop Dose total: 796 9:13:55 Dose Area Product 23718 mGy/cm. 9:14:16 Sharps counted by scrub and verified by R.N. 9:14:18 Insertion/operative site no bleeding no hematoma. 9:14:22 Post-op/insertion site Right Femoral artery dressed using a 4 x 4 and Tegaderm. 9:14:25 Post right femoral artery:stable 9:14:26 Post Procedure Pulses reassessed and unchanged 9:14:30 Post-procedure physical assessment completed. ASA score P 2 - A patient with mild systemic disease as per Rubin Hsieh MD. 9:14:32 Post procedure rhythm: unchanged. 9:14:36 Estimated blood loss: 5 ml 9:14:37 Post procedure instruction explained to patient.Patient verbalizes understanding. 9:14:39 Procedure and supply charges have been captured, reviewed, submitted and are correct. 9:15:06 EXOSEAL 5Fr (EX500) opened to sterile field. 9:15:37 Procedure Complication : No complications 9:15:39 Vital chart was stopped 9:15:42 [facility] Findings: MVD- MD will discuss options w/ pt 9:15:45 Operative report dictated upon procedure completion. 9:15:45 See physician's report for complete and final results. 9:15:47 Report given to Pre/Post Procedure Room. 9:15:50 Patient transfered to Pre/Post Procedure Room with Stretcher. 9:15:52 Procedure ended. 9:15:52 Full Disclosure recording stopped 9:16:00 End room use (Document Last) 9:16:31 End room use (Document Last) 9:17:08 End room use (Document Last) Device Usage Item Name Manufacture Quantity Catalog Hospital Part Current Minimal L ot# / Number Charge Number Stock Stock Serial# Code ACIST Acist 1 77470 943354 800261 191669 20 Syringe Medical (23656) Systems Inc Bag Microtek 1 168153 04005 983578 5 Decanter Medical Inc. () Medline Medline 1 [id number] 025651 91346 812290 5 Cath Pack ([id number]) ACIST Hand Acist 1 17795 526470 125719 366522 5 Control Medical (76792) Systems Inc ACIST Acist 1 57529 503110 785539 607663 5 Manifold Medical (03131) Systems Inc DIAGNOSTIC Cardinal 1 EE5292 945779 18693 656363 30 Multipack Health 5Fr catheter set (WG8635) Tegaderm 4 3M 1 1626W 523424 808291 565656 5 x 4 (1626W) SHEATH 5FR [place] 1 [id number] 093960 233665 336309 5 [place] (PRG144) EMERALD Cardinal 1 502-455 777487 879328 684562 5 Guide Wire Health (502-455) MULTIPACK Cardinal 1 890902 5 JL 4.0 5Fr Health catheter DIAGNOSTIC Cardinal 1 [id number] 310873 998685 109281 15 AR MOD 5Fr Health Catheter (139703J) DIAGNOSTIC Cardinal 1 [id number] 266089 668484 818273 5 IM 5Fr Health catheter ([id number]) MULTIPACK Cardinal 1 180696 5 Pigtail 5 Health Fr catheter EXOSEAL 5Fr Cardinal 1 EX500 047583 482619 183154 10 (EX500) Health Signature Audit [place] Stage Time Signature Unsigned Intra-Procedure 09/08/2020 Sukumar Lantigua RT(R) 9:16:31 AM Intra-Procedure 09/08/2020 Vernon Aguirre RN 9:17:08 AM Intra-Procedure 09/08/2020 Rubin Hsieh MD 9:17:35 AM Signatures Performing Physician : Signature : Rubin Hsieh MD Date : Time : Monitor : Sukumar Suit RT Signature : Date : Time : Nurse : Vernon Timothy RN Signature : Date : Time : [place] [address] [place] [address]
[~2020-09-08 06:51] MED LIST changes: +NITRO-DUR1 EAC3 TOPICAL
[2020-09-08] MEDS ORDERED: MULTI-DAY VITAM1 TAB PO (07:37)
[2020-09-08] MEDS ORDERED: COREG 3.1253.125 MG PO (07:40)
[2020-09-08] MEDS ORDERED: ISOSORBIDE MONO30 M1 PO (07:41)
[2020-09-08 07:42] VITALS: BP 116/51; Ht 177.8 cm; Wt 100.5 kg
[2020-09-08 08:09] LABS: BASOPHILS 0.8 % (0-2); HEMATOCRIT 34.1 % (42.0-54.0); HEMOGLOBIN 11.9 g/dL (13.5-17.5); LYMPHOCYTES 18.5 % (15-50); MCH 32.1 pg (26.0-34.0); MCHC 34.9 g/dL (31.0-37.0); MCV 92.2 fL (80.0-100.0); MEAN PLATELET VOLUME 8.5 fL (7.4-10.4); MONOCYTES 10.9 % (2-11); NEUTROPHILS 66.8 % (40-80); PLATELET COUNT 153 10x3/uL (130-400); RDW 15.4 % (11.5-14.5); WBC 5.9 10x3/uL (4.8-10.8)
[2020-09-08 08:20] LABS: ANION GAP 11.2 mmol/L (8-16); CALCIUM 9.2 mg/dL (8.5-10.1); CHOL - HDL RATIO 2.8 ratio (2.3-4.9); CREATININE - SERUM 1.3 mg/dL (0.6-1.3); LDL-HDL RATIO 1.2 ratio (1.5-3.5); POTASSIUM - SERUM 4.2 mmol/L (3.5-5.1)
--- NOTE | 2020-09-08 09:25 | NUR ---
PT ARRIVED TO CATH RECOVERY ROOM 9. MONITORING EQUIPMENT APPLIED, ASSESSMENT COMPLETE. R GROIN EXOSEAL CDI, SOFT. PERIPHERAL PULSES PRESENT. PT DROWSY, FOLLOWS COMMANDS. AT BEDSIDE. CALL LIGHT WITHIN PT REACH.
--- NOTE | 2020-09-08 09:40 | NUR ---
R GROIN EXOSEAL CDI WITH NO S/S OF HEMATOMA. PERIPHERAL PULSES PRESENT. NO COMPLAINTS AT THIS TIME. CALL LIGHT WITHIN PT REACH, AT BEDSIDE.
--- NOTE | 2020-09-08 09:55 | NUR ---
R GROIN EXOSEAL CDI WITH NO S/S OF HEMATOMA. PERIPHERAL PULSES PRESENT. NO COMPLAINTS OF NAUSEA OR PAIN. AT BEDSIDE. DENIES NEEDS. CALL LIGHT WITHIN PT REACH.
--- NOTE | 2020-09-08 10:02 | NUR ---
FIORELLA AT BEDSIDE, UPDATE PROVIDED TO PT AND .
--- NOTE | 2020-09-08 10:10 | NUR ---
R GROIN EXOSEAL CDI WITH NO S/S OF HEMATOMA. PERIPHERAL PULSES PRESENT. NO COMPLAINTS AT THIS TIME. CALL LIGHT WITHIN PT REACH.
--- NOTE | 2020-09-08 10:25 | NUR ---
R GROIN EXOSEAL CDI WITH NO S/S OF HEMATOMA. PEDAL PULSES PRESENT. NO COMPLAINTS AT THIS TIME. CALL LIGHT WITHIN PT REACH, AT BEDSIDE.
--- NOTE | 2020-09-08 10:40 | NUR ---
R GROIN EXOSEAL CDI WITH NO S/S OF HEMATOMA. PERIPHERAL PULSES PRESENT.
--- NOTE | 2020-09-08 11:00 | NUR ---
HOB ELEVATED TO 30 DEGREES, SANDWICH TRAY AND BEVERAGE PROVIDED. NO COMPLAINTS OF NAUSEA OR PAIN. R GROIN EXOSEAL CDI WITH NO S/S OF HEMATOMA.
--- NOTE | 2020-09-08 11:40 | NUR ---
PIV D/C'D, TIP INTACT. R GROIN EXOSEAL CDI, NO S/S OF HEMATOMA. DISCHARGE INSTRUCTIONS PROVIDED, BOTH PT AND VERBALIZE UNDERSTANDING. PT ALLOWED TO GET DRESSED INDEPENDENTLY.
--- NOTE | 2020-09-08 11:47 | NUR ---
TO BATHROOM INDEPENDENTLY
--- NOTE | 2020-09-08 11:54 | NUR ---
PT DISCHARGED VIA WHEELCHAIR TO PRIVATE VEHICLE WITH ALL BELONGINGS AND PAPERWORK.
== END 2020-09-08 11:55 | disposition home or self-care (01) ==
LOC: D.CATH 06:51
PROVIDERS: ATTEND Internal Medicine Cardiovascular Disease
DX: I25.110 Atherosclerotic heart disease of native coronary artery with unstable angina pectoris (principal); I48.91 Unspecified atrial fibrillation; I10 Essential (primary) hypertension